=== PATIENT | female | born 1950 | race Caucasian/White ===

== ENCOUNTER 2017-08-07 10:31 | Emergency (ER) | payer OTHER ==
[~2017-08-07] VITALS: Ht 167.6 cm; Wt 72.3 kg
[~2017-08-07 10:31] MED LIST: ASPI-110 PO; BENA25CA2 PO; FOLI1 PO; LEVO.05 PO; PANT20 PO; POTA-243 PO; PRED20 PO
[2017-08-07 11:23] VITALS: BP 126/73; PULSE 76; RESP 18; TEMP 97.8; O2SAT 97
[2017-08-07 12:17] LABS: AUTOMATED NEUTROPHIL # 9.6 TH/MM3 (1.8-7.7); BASOPHIL # 0.2 TH/MM3 (0-0.2); BASOPHIL % 1.2 % (0.0-2.0); EOSINOPHIL # 0.3 TH/MM3 (0-0.4); HEMATOCRIT 42.3 % (35.0-46.0); HEMOGLOBIN 14.4 GM/DL (11.6-15.3); LYMPH % 22.3 % (9.0-44.0); LYMPHOCYTE # 3.4 TH/MM3 (1.0-4.8); MEAN CELL VOLUME 90.8 FL (80.0-100.0); MEAN CORPUSCULAR HEMOGLOBIN 30.9 PG (27.0-34.0); MEAN PLATELET VOLUME 8.1 FL (7.0-11.0); MONO % 11.5 % (0.0-8.0); MONOCYTE # 1.7 TH/MM3 (0-0.9); PLATELET COUNT 450 TH/MM3 (150-450); RED BLOOD COUNT 4.66 MIL/MM3 (4.00-5.30); RED CELL DISTRIBUTION WIDTH 13.2 % (11.6-17.2); WHITE BLOOD COUNT 15.2 TH/MM3 (4.0-11.0)
[2017-08-07 12:25] LABS: INTERNATIONAL NORMALIZED RATIO 1.1 RATIO; PROTHROMBIN TIME - PATIENT 10.7 SEC (9.8-11.6)
[2017-08-07 12:26] LABS: BILIRUBIN, URINE NEG (NEG); BLOOD, URINE NEG (NEG); GLUCOSE,URINE NEG (NEG); HYALINE CAST, URINE 3 /lpf (RARE); KETONE, URINE NEG (NEG); MUCUS URINE FEW /lpf (OCC); NITRITE,URINE NEG (NEG); PH, URINE 5.5 (5.0-8.5); SQUAMOUS EPITHELIAL CELL URINE 1 /hpf (0-5); URINE COLOR YELLOW (YELLW/STRAW); URINE LEUKOCYTE ESTERASE SMALL (NEG)
[2017-08-07 12:33] LABS: BICARBONATE 27.4 MEQ/L (21.0-32.0); CALCIUM 9.9 MG/DL (8.5-10.1); CREATININE 0.67 MG/DL (0.50-1.00)
--- NOTE | 2017-08-07 13:30 | PD ---
HPI Chief Complaint: Medical Clearance Time Seen by Provider: 13:04 Travel History International Travel<30 days: No Contact w/Intl Traveler<30days: No Traveled to known affect area: No History of Present Illness HPI 67-year-old woman, presents to the emergency department complaining of pains all over her entire body. States it started in April and the back of her neck up into her head. States she had scalp pain. Now she has pain throughout her upper and lower extremities. More in the muscles than in the joints. No clear etiology. She had fevers yesterday. Brother is a history of polymyositis. She has had TTP in the past. She follows with Dr. Salazar. Tried muscle relaxers which have not really helped. History Past Medical History Narrative Medical TTP Hypothyroidism Menopausal: Yes : 2 Para: 2 Social History Alcohol Use: Yes (OCC) Tobacco Use: No Allergies-Medications (Allergen,Severity, Reaction): Coded Allergies: adhesive (Unverified Allergy, Severe, BLISTERS, 12/04/16) Reported Meds & Prescriptions Reported Meds & Active Scripts Active K-Dur (Potassium Chloride) 10 Meq Tabcr 10 Meq PO DAILY Deltasone 20 Mg Tab (Prednisone) 20 Mg Tab 20 Mg PO DAILY 30 Days Reported Folate 1 Mg Tab (Folic Acid) 1 Mg Tab 1 Mg PO DAILY Protonix (Pantoprazole Sodium) 20 Mg Tabdr 20 Mg PO DAILY Benadryl (Diphenhydramine HCl) 25 Mg Cap 25 Mg PO HSPRN Aspirin/Enteric (Aspirin) 81 Mg Tab 81 Mg PO DAILY Synthroid (Levothyroxine Sodium) 50 Mcg Tab 75 Mcg PO DAILY Review of Systems Except as stated in HPI: all other systems reviewed are Neg Physical Exam Narrative GENERAL: Well-appearing 67-year-old woman, no acute distress. SKIN: Focused skin assessment warm/dry. No rash or petechiae. HEAD: Atraumatic. Normocephalic. EYES: Pupils equal and round. No scleral icterus. No injection or drainage. ENT: No nasal bleeding or discharge. Mucous membranes pink and moist. NECK: Trachea midline. No JVD. CARDIOVASCULAR: Regular rate and rhythm. No murmur appreciated. RESPIRATORY: No accessory muscle use. Clear to auscultation. Breath sounds equal bilaterally. GASTROINTESTINAL: Abdomen soft, non-tender, nondistended. Hepatic and splenic margins not palpable. MUSCULOSKELETAL: No obvious deformities. No edema, swelling, muscle tenderness. NEUROLOGICAL: Awake and alert. No obvious cranial nerve deficits. Motor grossly within normal limits. Normal speech. PSYCHIATRIC: Appropriate mood and affect; insight and judgment normal. Data Data Last Documented VS Vital Signs Date Time Temp Pulse Resp B/P (MAP) Pulse Ox O2 Delivery O2 Flow Rate FiO2 08/07/17 11:23 97.8 76 18 126/73 (90) 97 Orders Orders Complete Blood Count With Diff (08/07/17 11:26) Basic Metabolic Panel (Bmp) (08/07/17 11:26) Urinalysis - C+S If Indicated (08/07/17 11:26) Creatine Kinase (Cpk) (08/07/17 11:26) Act Partial Throm Time (Ptt) (08/07/17 11:30) Prothrombin Time / Inr (Pt) (08/07/17 11:30) Ed Discharge Order (08/07/17 13:30) Labs Laboratory Tests Test 08/07/17 11:55 White Blood Count 15.2 TH/MM3 Red Blood Count 4.66 MIL/MM3 Hemoglobin 14.4 GM/DL Hematocrit 42.3 % Mean Corpuscular Volume 90.8 FL Mean Corpuscular Hemoglobin 30.9 PG Mean Corpuscular Hemoglobin Concent 34.0 % Red Cell Distribution Width 13.2 % Platelet Count 450 TH/MM3 Mean Platelet Volume 8.1 FL Neutrophils (%) (Auto) 63.0 % Lymphocytes (%) (Auto) 22.3 % Monocytes (%) (Auto) 11.5 % Eosinophils (%) (Auto) 2.0 % Basophils (%) (Auto) 1.2 % Neutrophils # (Auto) 9.6 TH/MM3 Lymphocytes # (Auto) 3.4 TH/MM3 Monocytes # (Auto) 1.7 TH/MM3 Eosinophils # (Auto) 0.3 TH/MM3 Basophils # (Auto) 0.2 TH/MM3 CBC Comment DIFF FINAL Differential Comment Prothrombin Time 10.7 SEC Prothromb Time International Ratio 1.1 RATIO Activated Partial Thromboplast Time 23.9 SEC Urine Color YELLOW Urine Turbidity CLEAR Urine pH 5.5 Urine Specific [place] 1.021 Urine Protein NEG mg/dL Urine Glucose (UA) NEG mg/dL Urine Ketones NEG mg/dL Urine Occult Blood NEG Urine Nitrite NEG Urine Bilirubin NEG Urine Urobilinogen LESS THAN 2.0 MG/DL Urine Leukocyte Esterase SMALL Urine RBC 3 /hpf Urine WBC 3 /hpf Urine Squamous Epithelial Cells 1 /hpf Urine Hyaline Casts 3 /lpf Urine Mucus FEW /lpf Microscopic Urinalysis Comment CULT NOT INDICATED Blood Urea Nitrogen 12 MG/DL Creatinine 0.67 MG/DL Random Glucose 87 MG/DL Calcium Level 9.9 MG/DL Sodium Level 140 MEQ/L Potassium Level 3.9 MEQ/L Chloride Level 104 MEQ/L Carbon Dioxide Level 27.4 MEQ/L Anion Gap 9 MEQ/L Estimat Glomerular Filtration Rate 88 ML/MIN Total Creatine Kinase 74 U/L [facility] Medical Decision Making Medical Screen Exam Complete: Yes Emergency Medical Condition: Yes Interpretation(s) LABS: CBC is remarkable for mild leukocytosis. Platelet count 450. BMP is unremarkable. UA is unremarkable. Differential Diagnosis Rheumatologic disease, rhabdomyolysis, TTP, other Narrative Course Medical decision making This 67-year-old woman who presents emerged from complaining of generalized pain. She looks well. There is no significant calf her other muscle tenderness to suggest myositis. She is family history of immune disease. She likely needs follow-up with a manager call. Platelet counts normal. I do not see any myoglobinuria or other evidence of rhabdo. Outpatient follow-up. Diagnosis Primary Impression: Myalgia Referrals: [facility] call for appointment Additional Instructions: Follow up with Dr. Collins, call for an appointment [phone]. Return to the ER for any new or worsening symptoms. Follow-up with your primary doctor and your oncologist. Med/Other Pt SpecificInfo: Prescription(s) given, No Change to Meds Disposition: 01 DISCHARGE HOME Condition: Stable Vinay Galindo MD Aug 07, 2017 13:30
[2017-08-07 13:31] VITALS: BP 131/77; PULSE 74; RESP 18; O2SAT 98
[2017-08-07 14:07] VITALS: BP 110/70
== END 2017-08-07 14:08 | disposition home or self-care (01) ==
LOC: NEPE 10:31
DX: M79.1 Myalgia (principal); E03.9 Hypothyroidism, unspecified; Z79.899 Other long term (current) drug therapy
CPT/HCPCS: 80048; 81001; 82550; 85025; 85610; 85730; 99283

== ENCOUNTER 2018-04-04 19:12 | Inpatient (IN) ==
[2018-04-04 19:51] LABS: Baso # (Auto) 0.1 th/mm3 (0.0-0.2); Baso % (Auto) 0.5 % (0.0-2.0); Eos # (Auto) 0.1 th/mm3 (0.0-0.4); Eos % (Auto) 0.4 % (0.0-4.0); Hematocrit 29.3 % (35.0-46.0); Hemoglobin 10.5 gm/dL (11.6-15.3); Lymph # (Auto) 4.9 th/mm3 (1.0-4.8); Lymph % (Auto) 28.7 % (9.0-44.0); Mean Corpuscular HGB Conc 35.9 % (32.0-36.0); Mean Corpuscular Hemoglobin 34.4 pg (27.0-34.0); Mean Corpuscular Volume 95.7 fL (80.0-100.0); Mean Platelet Volume 7.9 fL (7.0-11.0); Mono # (Auto) 1.8 th/mm3 (0.0-0.9); Mono % (Auto) 10.6 % (0.0-8.0); Neut # (Auto) 10.2 th/mm3 (1.8-7.7); Neut % (Auto) 59.8 % (16.0-70.0); Red Blood Count 3.07 mil/mm3 (4.00-5.30); Red Cell Distribution Width 17.3 % (11.6-17.2); White Blood Count 17.1 th/mm3 (4.0-11.0)
--- NOTE | 2018-04-04 20:02 | ED ---
HPI General Chief complaint: Medical Clearance Stated complaint: Abd/Rib Pain Complaint Time Seen by Provider: 04/04/18 19:23 Source: patient Mode of arrival: ambulatory Limitations: no limitations History of Present Illness HPI narrative: 67-year-old female presents noting that she was called to tell that her platelets were 8000. She states she has a history of TTP and when he gets like this she has to have pheresis. 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 She states that she has not had any headaches, specific bleeding or complaints other than bilateral lower rib pain that she does not know if this is related. She denies any cough or congestion or other symptoms associated with this. She denies any trauma. She states that the last time she had a flare was about 4 years ago. Quality is low. Severity is 8000. She denies specific modifying factors. Related Data Home Medications Medication Instructions Recorded Confirmed ascorbic acid (vitamin C) [Vitamin 500 mg PO BID 04/04/18 04/04/18 C] calcium citrate-vitamin D3 1 tab PO DAILY 04/04/18 04/04/18 folic acid 0.8 mg PO BID 04/04/18 04/04/18 levothyroxine 75 mcg PO DAILY 04/04/18 04/04/18 potassium 99 mg PO DAILY 04/04/18 04/04/18 prednisone 40 mg PO DAILY 04/04/18 04/04/18 pyridoxine (vitamin B6) [Vitamin 25 mg PO TID 04/04/18 04/04/18 B-6] Allergies Allergy/AdvReac Type Severity Reaction Status Date / Time adhesive Allergy Severe BLISTERS Verified 04/04/18 19:19 Review of Systems ROS: all other systems reviewed are negative [facility] Medical History Medical History PMR (polymyalgia rheumatica) (Acute) TTP (thrombotic thrombocytopenic purpura) (Acute) Social History Social History Substance History: Past History Smoking Status: Former smoker Tobacco Type: Cigarettes How Often Do You Have a Drink Containing Alcohol: 4 or more times a week Recent Travel in [facility] within the Last 8 Weeks: No Recent Out of Country Travel within the Last 8 Weeks: No Substance Abuse Detail Marijuana: Substance Use Status: Early Remission Route Used Substance Abuse: By Mouth Reason for Use: Get High Immunization History Tetanus Immunization: Unsure Exam Narrative Exam Narrative: GENERAL: 67 y/o female in no apparent distress SKIN: Focused skin assessment warm/dry. HEAD: Atraumatic. Normocephalic. EYES: Pupils equal and round. No scleral icterus. No injection or drainage. ENT: No nasal bleeding or discharge. Mucous membranes pink and moist. NECK: Trachea midline. CARDIOVASCULAR: Regular rate and rhythm. RESPIRATORY: No accessory muscle use. Clear to auscultation. Breath sounds equal bilaterally. GASTROINTESTINAL: Abdomen soft, non-tender, nondistended. MUSCULOSKELETAL: No obvious deformities. No clubbing. No cyanosis. NEUROLOGICAL: Awake and alert. Motor grossly within normal limits. Normal speech. PSYCHIATRIC: Appropriate mood and affect; insight and judgment normal. Course Reevaluation(s) Reevaluation #1: Calls placed to Dr. Baumann who is covering for Dr. Salazar without return of call. Will dose with Solu-Medrol and placed in the hospital overnight for initiation of TTP care Reevaluation #2: patient updated and agrees to admit Consultations Consultation #1: dr mcdonald states to keep calling dr salazar and place in observation Initial Documented Vital Signs Temperature 97.8 F 04/04/18 19:16 Pulse Rate 94 H 04/04/18 19:16 Respiratory Rate 17 04/04/18 19:16 Blood Pressure 185/78 H 04/04/18 19:16 Pulse Oximetry 97 04/04/18 19:16 Last Documented Vital Signs Temperature 97.8 F 04/04/18 19:16 Pulse Rate 80 04/04/18 22:01 Respiratory Rate 18 04/04/18 22:01 Blood Pressure 139/65 04/04/18 22:01 Pulse Oximetry 97 04/04/18 22:01 Medical Decision Making MDM Narrative Medical decision making narrative: We will check blood work, chest x-ray and reevaluate. If patient's platelets are this level she will need to be admitted for additional care and she understands this. Medical Screen Exam Complete: Yes Emergency Medical Condition: Yes Differential Diagnosis Differential Diagnosis: lab error, ttp, anemia, fracture.... Lab Data Result diagrams: 04/04/18 19:40 04/04/18 19:40 Lab Results 12/14/18 12/14/18 12/14/18 Range/Units 19:40 19:40 19:40 WBC 17.1 H (4.0-11.0) th/mm3 RBC 3.07 L (4.00-5.30) mil/mm3 Hgb 10.5 L (11.6-15.3) gm/dL Hct 29.3 L (35.0-46.0) % MCV 95.7 (80.0-100.0) fL MCH 34.4 H (27.0-34.0) pg MCHC 35.9 (32.0-36.0) % RDW 17.3 H (11.6-17.2) % Plt Count 10 L* (150-450) th/mm3 MPV 7.9 (7.0-11.0) fL Prelim Diff (Auto) Slide review pending Neut % (Auto) 59.8 (16.0-70.0) % Lymph % (Auto) 28.7 (9.0-44.0) % [place] % (Auto) 10.6 H (0.0-8.0) % Eos % (Auto) 0.4 (0.0-4.0) % Baso % (Auto) 0.5 (0.0-2.0) % Neut # (Auto) 10.2 H (1.8-7.7) th/mm3 Lymph # (Auto) 4.9 H (1.0-4.8) th/mm3 [place] # (Auto) 1.8 H (0.0-0.9) th/mm3 Eos # (Auto) 0.1 (0.0-0.4) th/mm3 Baso # (Auto) 0.1 (0.0-0.2) th/mm3 WBC Differential . Diff Scan Auto diff confirmed Differential Comment . Platelet Estimate Low L (Normal) Platelet Morphology Enlarged H (Normal) Acanthocytes (Spur) 1+ H (None) Keratocytes 1+ H (None) PT 10.7 (9.8-11.6) sec INR 1.1 Ratio APTT 27.1 (23.4-31.7) sec Sodium 141 (136-145) meq/L Potassium 3.9 (3.5-5.1) meq/L Chloride 105 (98-107) meq/L Carbon Dioxide 27.5 (21.0-32.0) meq/L Anion Gap 9 (5-15) meq/L BUN 19 H (7-18) mg/dL Creatinine 0.80 (0.50-1.00) mg/dL Estimated GFR 72 L (>89) mL/min Random Glucose 127 H (74-106) mg/dL Calcium 9.6 (8.5-10.1) mg/dL Magnesium 2.1 (1.5-2.5) mg/dL Total Bilirubin 1.1 H (0.2-1.0) mg/dL AST 59 H (15-37) U/L ALT 57 H (10-53) U/L Alkaline Phosphatase 81 (45-117) U/L Total Creatine Kinase 105 (26-192) U/L CK-MB (CK-2) 1.3 (0.5-3.6) ng/mL Troponin I Less than 0.02 L (0.02-0.05) ng/mL Total Protein 8.5 H (6.4-8.2) g/dL Albumin 4.3 (3.4-5.0) g/dL Urine Color (Yellw/Straw) Urine Clarity (Clear) Urine pH (5.0-8.5) Ur Specific [place] (1.002-1.035) Urine Protein (Neg-Trace) mg/dL Urine Glucose (UA) (Negative) mg/dL Urine Ketones (Negative) mg/dL Urine Occult Blood (Negative) Urine Nitrate (Negative) Urine Bilirubin (Negative) Urine Urobilinogen (Less than 2) mg/dL Ur Leukocyte Esterase (Negative) Urine RBC (0-3) /hpf Urine WBC (0-5) /hpf Hyaline Casts (0-3) /lpf Granular Casts (None) /lpf Urine Mucus (Occasional) /lpf Micro UA Comment Ur Microscopic Review Urine Culture Comments Blood Type Blood Type Recheck Antibody Screen 04/04/18 04/04/18 Range/Units 19:40 20:35 WBC (4.0-11.0) th/mm3 RBC (4.00-5.30) mil/mm3 Hgb (11.6-15.3) gm/dL Hct (35.0-46.0) % MCV (80.0-100.0) fL MCH (27.0-34.0) pg MCHC (32.0-36.0) % RDW (11.6-17.2) % Plt Count (150-450) th/mm3 MPV (7.0-11.0) fL Prelim Diff (Auto) Neut % (Auto) (16.0-70.0) % Lymph % (Auto) (9.0-44.0) % [place] % (Auto) (0.0-8.0) % Eos % (Auto) (0.0-4.0) % Baso % (Auto) (0.0-2.0) % Neut # (Auto) (1.8-7.7) th/mm3 Lymph # (Auto) (1.0-4.8) th/mm3 [place] # (Auto) (0.0-0.9) th/mm3 Eos # (Auto) (0.0-0.4) th/mm3 Baso # (Auto) (0.0-0.2) th/mm3 WBC Differential Diff Scan Differential Comment Platelet Estimate (Normal) Platelet Morphology (Normal) Acanthocytes (Spur) (None) Keratocytes (None) PT (9.8-11.6) sec INR Ratio APTT (23.4-31.7) sec Sodium (136-145) meq/L Potassium (3.5-5.1) meq/L Chloride (98-107) meq/L Carbon Dioxide (21.0-32.0) meq/L Anion Gap (5-15) meq/L BUN (7-18) mg/dL Creatinine (0.50-1.00) mg/dL Estimated GFR (>89) mL/min Random Glucose (74-106) mg/dL Calcium (8.5-10.1) mg/dL Magnesium (1.5-2.5) mg/dL Total Bilirubin (0.2-1.0) mg/dL AST (15-37) U/L ALT (10-53) U/L Alkaline Phosphatase (45-117) U/L Total Creatine Kinase (26-192) U/L CK-MB (CK-2) (0.5-3.6) ng/mL Troponin I (0.02-0.05) ng/mL Total Protein (6.4-8.2) g/dL Albumin (3.4-5.0) g/dL Urine Color Yellow (Yellw/Straw) Urine Clarity Hazy H (Clear) Urine pH 5.0 (5.0-8.5) Ur Specific [place] 1.021 (1.002-1.035) Urine Protein 30 H (Neg-Trace) mg/dL Urine Glucose (UA) Negative (Negative) mg/dL Urine Ketones Negative (Negative) mg/dL Urine Occult Blood Small H (Negative) Urine Nitrate Negative (Negative) Urine Bilirubin Negative (Negative) Urine Urobilinogen Less than 2 (Less than 2) mg/dL Ur Leukocyte Esterase Moderate H (Negative) Urine RBC 2 (0-3) /hpf Urine WBC 19 H (0-5) /hpf Hyaline Casts 4 (0-3) /lpf Granular Casts 5 (None) /lpf Urine Mucus Few H (Occasional) /lpf Micro UA Comment Culture indicated Ur Microscopic Review Not Reportable Urine Culture Comments Culture indicated Blood Type B Negative Blood Type Recheck Required Antibody Screen Negative Imaging Data Radiologist's impression: Chest X-Ray 04/04/18 19:29 CONCLUSION: 1. No acute cardiopulmonary disease. Discharge Plan Discharge Disposition Patient Disposition: ED Admit(ED Internal Use Only) Discharge Order Discharge Orders: ED Use Only Admit Order (Routine); Ordered 04/04/18 Ordered By: Praveena Jimenez Discharge Details Diagnosis: Thrombocytopenia Physicians Team ED Provider: Praveena Jimenez Primary Care Provider: UNKNOWN, Attending Provider: Blue Mcdonald Other Providers: [employer] Status ED Status: Admitted Observation Patient
[2018-04-04 20:04] LABS: Platelet Count 10 th/mm3 (150-450)
[2018-04-04 20:09] LABS: Activated Partial Thrombo Time 27.1 sec (23.4-31.7); INR 1.1 Ratio; Prothrombin Time 10.7 sec (9.8-11.6)
--- NOTE | 2018-04-04 20:14 | XR ---
EXAM DATE: 04/04/2018 8:10 PM EST AGE/SEX: 67 years / Female INDICATIONS: . Chest tightness. CLINICAL DATA: This is the patient's initial encounter. Patient reports that signs and symptoms have been present for 1 day and indicates a pain score of 0/10. MEDICAL/SURGICAL HISTORY: . Thrombotic thrombocytopenic purpura. None. [place] [facility] [place]. . FINDINGS: PA and lateral views of the chest demonstrate the lungs to be symmetrically aerated without evidence of mass, infiltrate or effusion. The cardiomediastinal contours are unremarkable. Osseous structures are intact. CONCLUSION: 1. No acute cardiopulmonary disease. Electronically signed by: Oscar Mcknight MD Board Certified Radiologist 04/04/2018 8:12 PM ES T
[2018-04-04 20:21] LABS: Alanine Aminotransferase 57 U/L (10-53); Albumin 4.3 g/dL (3.4-5.0); Anion Gap 9 meq/L (5-15); Aspartate Aminotransferase 59 U/L (15-37); Blood Urea Nitrogen 19 mg/dL (7-18); Calcium 9.6 mg/dL (8.5-10.1); Carbon Dioxide 27.5 meq/L (21.0-32.0); Chloride 105 meq/L (98-107); Glomerular Filtration Rate 72 mL/min (>89); Glucose,Random 127 mg/dL (74-106); Magnesium 2.1 mg/dL (1.5-2.5); Potassium 3.9 meq/L (3.5-5.1); Sodium 141 meq/L (136-145)
[2018-04-04 20:22] LABS: Acanthocytes 1+
[2018-04-04 20:25] LABS: Alkaline Phosphatase 81 U/L (45-117); Creatine Kinase 105 U/L (26-192); Total Protein 8.5 g/dL (6.4-8.2)
[2018-04-04 20:37] LABS: Creatine Kinase MB 1.3 ng/mL (0.5-3.6)
[2018-04-04] MEDS ORDERED: MethylPREDNISolone Sod Succinate Inj 125 MG/2 ML Vial IV.PUSH ONE (20:53)
[2018-04-04] MEDS ORDERED: Bisacodyl 10 MG Supp RECTAL PRN (21:18)
[2018-04-04 21:20] LABS: Bilirubin,Urine Negative (Negative); Clarity,Urine Hazy (Clear); Color,Urine Yellow (Yellw/Straw); Glucose,Urine (UA) Negative (Negative); Hyaline Casts,Urine 4 /lpf (0-3); Leukocyte Esterase,Urine Moderate (Negative); Mucus,Urine Few /lpf (Occasional); Nitrite,Urine Negative (Negative); Specific Gravity,Urine 1.021 (1.002-1.035)
--- NOTE | 2018-04-05 03:44 | P.HPIM ---
History of Present Illness Primary Care Physician: UNKNOWN History of Present Illness: 67-year-old female with a history of TTP who presents with a 3-week history of progressively worsening generalized. Patient was found to have low platelets in the 40s 1 week ago and was started on prednisone 40 mg daily, however on outpatient labs 04/04, she is noted to have hemoglobin of 8. Patient reports some small areas of ecchymosis on her hands, as well as some petechia on her legs which has been there for several days. She denies any acute bleeding, denies any gum bleeding. Otherwise says she is feeling all right. No chest pain, shortness of breath, nausea, vomiting, Lantus, dizziness, fevers, chills. Review of Systems All other systems reviewed negative except as stated in HPI PMFSH - History History Provided By: Patient - Medical History Medical History: Medical History (Last Updated 04/05/18 @ 03:42 by Blue Mcdonald MD) H/O: hysterectomy PMR (polymyalgia rheumatica) TTP (thrombotic thrombocytopenic purpura) - Surgical History Surgical History: Surgical History (Last Updated 04/05/18 @ 03:42 by Blue Mcdonald MD) H/O splenectomy Hx of tonsillectomy - Family History Family History: Family History (Last Updated 04/05/18 @ 03:42 by Blue Mcdonald MD) Father Heart disease Mother Appendicitis - Social History I have reviewed the patient's Social History: Yes - Tobacco History Second Hand Smoke Exposure: No Tobacco Use In Past 30 Days: No Smoking Status: Never smoker Tobacco Type: Cigarettes - Alcohol History How Often Do You Have a Drink Containing Alcohol: Never - Substance Use History Substance History: No History of Abuse - Substance Use Type Marijuana Status: Early Remission Route Used: By Mouth Reason for Use: Get High - Travel History Recent Travel in the [place] Within the Last 8 Weeks: No Recent Travel Out of the Country Within the Last 8 Weeks: No - Immunization History Tetanus Immunization: Unsure Medications and Allergies Active Medications: Active Medications Acetaminophen (Tylenol) 650 mg PO Q4H PRN PRN Reason: Temp > 100.4 Al Hydroxide/Mg Hydroxide (Milk Of Magnesia Liq) 30 ml PO Q12H PRN PRN Reason: Mild Constipation Ascorbic Acid (Vitamin C) 500 mg PO BID JACKI Bisacodyl (Dulcolax Supp) 10 mg RECTAL DAILY PRN PRN Reason: SEVERE CONSITIPATION Calcium/Vitamin D (Oscal With D 250/125 Mg) 2 tab PO DAILY [facility] Folic Acid (Folic Acid) 1 mg PO BID [facility] Lactulose (Lactulose Liq) 30 ml PO DAILY PRN PRN Reason: SEVERE CONSITIPATION Levothyroxine Sodium (Synthroid) 75 mcg PO DAILY@0600 [facility] Ondansetron HCl (Zofran Inj) 4 mg IV.PUSH Q6H PRN PRN Reason: NAUSEA OR VOMITING Prednisone (Deltasone) 40 mg PO DAILY [facility] Pyridoxine HCl (Vitamin B-6) 25 mg PO TID [facility] Sennosides (Senokot) 17.2 mg PO Q12H PRN PRN Reason: Moderate Constipation Sodium Chloride (Ns Flush) 2 ml IV.FLUSH BID [facility] Sodium Chloride (Ns Flush) 2 ml IV.FLUSH PRN PRN PRN Reason: FLUSH AFTER USING IV ACCESS Allergies Allergy/AdvReac Type Severity Reaction Status Date / Time adhesive Allergy Severe BLISTERS Verified 04/04/18 19:19 Home Medications Medication Instructions Recorded Confirmed Type ascorbic acid (vitamin C) [Vitamin 500 mg PO BID 04/04/18 04/04/18 History C] calcium citrate-vitamin D3 1 tab PO DAILY 04/04/18 04/04/18 History folic acid 0.8 mg PO BID 04/04/18 04/04/18 History levothyroxine 75 mcg PO DAILY 04/04/18 04/04/18 History potassium 99 mg PO DAILY 04/04/18 04/04/18 History prednisone 40 mg PO DAILY 04/04/18 04/04/18 History pyridoxine (vitamin B6) [Vitamin 25 mg PO TID 04/04/18 04/04/18 History B-6] Exam Vital signs: Vital Signs 04/04/18 19:16 04/04/18 22:01 04/04/18 22:50 Temperature 97.8 F 97.6 F Pulse Rate 94 H 80 81 Respiratory Rate 17 18 18 Blood Pressure 185/78 H 139/65 115/56 L Pulse Oximetry 97 97 97 04/04/18 23:45 Temperature 98.1 F Pulse Rate 77 Respiratory Rate 18 Blood Pressure 118/62 Pulse Oximetry 95 Intake & Output 04/04/18 04/04/18 04/05/18 06:59 18:59 06:59 Weight 76.204 kg Other: Date of Last Bowel Movement 04/04/18 Weight On Admission 76.204 kg Results - Labs CBC & Chem 7: 04/04/18 19:40 04/04/18 19:40 Labs: Short CBC 04/04/18 Range/Units 19:40 WBC 17.1 H (4.0-11.0) th/mm3 Hgb 10.5 L (11.6-15.3) gm/dL Hct 29.3 L (35.0-46.0) % Plt Count 10 L* (150-450) th/mm3 BMP 04/04/18 19:40 Sodium 141 Potassium 3.9 Chloride 105 Carbon Dioxide 27.5 BUN 19 H Creatinine 0.80 Calcium 9.6 Cardiac Enzymes 04/04/18 Range/Units 19:40 Total Creatine Kinase 105 (26-192) U/L CK-MB (CK-2) 1.3 (0.5-3.6) ng/mL Troponin I Less than 0.02 L (0.02-0.05) ng/mL Liver Function 04/04/18 Range/Units 19:40 Total Bilirubin 1.1 H (0.2-1.0) mg/dL AST 59 H (15-37) U/L ALT 57 H (10-53) U/L Alkaline Phosphatase 81 (45-117) U/L Albumin 4.3 (3.4-5.0) g/dL Urine 04/04/18 Range/Units 20:35 Urine Color Yellow (Yellw/Straw) Urine Clarity Hazy H (Clear) Urine pH 5.0 (5.0-8.5) Ur Specific [place] 1.021 (1.002-1.035) Urine Protein 30 H (Neg-Trace) mg/dL Urine Glucose (UA) Negative (Negative) mg/dL - Imaging Impressions Chest X-Ray 04/04/18 19:29 CONCLUSION: 1. No acute cardiopulmonary disease. Caprini VTE Risk Assessment Caprini VTE Risk Assessment: Moderate/High Risk (score >= 2) VTE Pharmacological Exception Reason: Thrombocytopenia (<50) Caprini Risk Assessment Model: Point Value = 1 Point Value = 2 Point Value = 3 Point Value = 5 Age 41-60 Minor surgery BMI > 25 kg/m2 Swollen legs Varicose veins or History of unexplained or recurrent spontaneous Oral contraceptives or hormone replacement Sepsis (< 1 month) Serious lung disease, including pneumonia (< 1 month) Abnormal pulmonary function Acute myocardial infarction Congestive heart failure (< 1 month) History of inflammatory bowel disease Medical patient at bed rest Age 61-74 Arthroscopic surgery Major open surgery (> 45 min) Laparoscopic surgery (> 45 min) Malignancy Confined to bed (> 72 hours) Immobilizing plaster cast Central venous access Age >= 75 History of VTE Family history of VTE Factor V Leiden Prothrombin [id number] Lupus anticoagulant Anticardiolipin antibodies Elevated serum homocysteine Heparin-induced thrombocytopenia Other congenital or acquired thrombophilia Stroke (< 1 month) Elective arthroplasty Hip, pelvis, or leg fracture Acute spinal cord injury (< 1 month) Prophylaxis Regimen: Total Risk Factor Score Risk Level Prophylaxis Regimen 0-1 Low Early ambulation 2 Moderate Order ONE of the following: *Sequential Compression Device (SCD) *Heparin 5000 units SQ BID 3-4 Higher Order ONE of the following medications: *Heparin 5000 units SQ TID *Enoxaparin/Lovenox 40 mg SQ daily (WT < 150 kg, CrCl > 30 mL/min) *Enoxaparin/Lovenox 30 mg SQ daily (WT < 150 kg, CrCl > 10-29 mL/min) *Enoxaparin/Lovenox 30 mg SQ BID (WT < 150 kg, CrCl > 30 mL/min) AND/OR *Sequential Compression Device (SCD) 5 or more Highest Order ONE of the following medications: *Heparin 5000 units SQ TID (Preferred with Epidurals) *Enoxaparin/Lovenox 40 mg SQ daily (WT < 150 kg, CrCl > 30 mL/min) *Enoxaparin/Lovenox 30 mg SQ daily (WT < 150 kg, CrCl > 10-29 mL/min) *Enoxaparin/Lovenox 30 mg SQ BID (WT < 150 kg, CrCl > 30 mL/min) AND *Sequential Compression Device (SCD) Assessment and Plan - Plan //Thrombocytopenia //History of TTP = Platelets measured 8,000 as outpatient, 10 thousand here. Some petechia and mild ecchymosis. = We will start on IV steroids. Consult hematology. No signs of active bleeding. Monitor //Transaminitis. //Mild hyperbilirubinemia of 1.1 -We will check bilirubin components. -Appears to be chronic. Recommend patient cut out alcohol //Leukocytosis of 17. Likely secondary to increased dose of by mouth steroids as outpatient. No signs of infection. Continue to monitor. Discussed Condition With: Patient, nurse, ED physician. H&P: Quality - VTE Deep Vein Thrombosis/Pulmonary Embolism Present on Admission: No
[2018-04-05] MEDS: MethylPREDNISolone Sod Succinate Inj 40 MG/ML Vial IV.PUSH SCH ×3 (06:30→21:47)
[2018-04-05] MEDS: Levothyroxine 75 MCG Tablet PO SCH (06:30)
[2018-04-05] MEDS ORDERED: Bisacodyl 10 MG Supp RECTAL PRN (08:10)
[2018-04-05 08:38] LABS: Baso % (Auto) 0.2 % (0.0-2.0); Hematocrit 28.1 % (35.0-46.0); Lymph # (Auto) 2.4 th/mm3 (1.0-4.8); Lymph % (Auto) 15.7 % (9.0-44.0); Mean Corpuscular HGB Conc 35.5 % (32.0-36.0); Mean Corpuscular Hemoglobin 34.7 pg (27.0-34.0); Mean Corpuscular Volume 97.8 fL (80.0-100.0); Mean Platelet Volume 8.4 fL (7.0-11.0); Mono # (Auto) 0.5 th/mm3 (0.0-0.9); Mono % (Auto) 3.1 % (0.0-8.0); Neut # (Auto) 12.5 th/mm3 (1.8-7.7); Red Blood Count 2.87 mil/mm3 (4.00-5.30); Red Cell Distribution Width 17.5 % (11.6-17.2); White Blood Count 15.4 th/mm3 (4.0-11.0)
[2018-04-05 08:51] LABS: Platelet Count 6 th/mm3 (150-450)
[2018-04-05] MEDS ORDERED: predniSONE 20 MG Tablet PO SCH (09:00)
[2018-04-05] MEDS ORDERED: Famotidine PF Inj 20 MG/2 ML Vial IV.PUSH PRN (09:00)
[2018-04-05 09:15] LABS: Albumin 3.9 g/dL (3.4-5.0); Anion Gap 8 meq/L (5-15); Aspartate Aminotransferase 47 U/L (15-37); Blood Urea Nitrogen 16 mg/dL (7-18); Calcium 9.3 mg/dL (8.5-10.1); Chloride 108 meq/L (98-107); Glomerular Filtration Rate 77 mL/min (>89); Glucose,Random 164 mg/dL (74-106); Potassium 4.1 meq/L (3.5-5.1); Sodium 143 meq/L (136-145)
[2018-04-05 09:17] LABS: Acanthocytes 1+; Alanine Aminotransferase 48 U/L (10-53); Howell-Jolly Bodies Present
[2018-04-05 09:18] LABS: Platelet Morphology Normal (Normal)
[2018-04-05 09:19] LABS: Alkaline Phosphatase 66 U/L (45-117); Total Protein 7.8 g/dL (6.4-8.2)
[2018-04-05] MEDS: Famotidine 20 MG Tablet PO SCH ×2 (09:41→21:46)
[2018-04-05] MEDS: Senna/Docusate Sodium 8.6/50 MG Tablet PO SCH ×2 (09:41→21:46)
[2018-04-05] MEDS: Calcium/Vitamin D 250/125 MG Tablet PO SCH (09:41)
[2018-04-05] MEDS: Ascorbic Acid 500 MG Tablet PO SCH ×2 (09:41→21:46)
[2018-04-05] MEDS: Folic Acid 1 MG Tablet PO SCH ×2 (09:41→21:46)
[2018-04-05 10:03] LABS: Lactate Dehydrogenase 1063 U/L (84-246)
--- NOTE | 2018-04-05 10:11 | P.CONCC ---
History of Present Illness Service: ICU Consult date: 04/05/18 Requesting Physician: Blue Mcdonald Reason for Consult: Severe thrombocytopenia/TTP Vascular Access Primary Care Provider: UNKNOWN Chief Complaint: Thrombocytopenia History of Present Illness: This is a 67-year-old female with a history of TTP that presented to the hospital yesterday with a history malaise. Laboratory studies were obtained and revealed a platelet count 8. Repeat labs drawn showed a platelet count of 10. Hematologyoncology was consulted, and upon their evaluation and request for plasmapheresis to be performed. Due to scheduling and weekend coverage ICU was consulted for placement of vascular access catheter for initiation of plasmapheresis. Upon evaluation in the ICU the patient expressed wishes to only have her vascular catheter placed in the operating room, under sterile conditions with anesthesia. Discussed with hematologyoncology Ary Salas. Plan for vascular access with vascular surgery. 1 unit of platelets ordered for possible transfusion. Review of Systems Constitutional: Reports fatigue, Reports malaise Hematologic/Lymphatic: Reports easy bleeding, Reports easy bruising PMFSH - History History Provided By: Patient - Medical History Medical History: Medical History (Last Updated 04/05/18 @ 03:42 by Blue Mcdonald MD) H/O: hysterectomy PMR (polymyalgia rheumatica) TTP (thrombotic thrombocytopenic purpura) - Surgical History Surgical History: Surgical History (Last Updated 04/05/18 @ 03:42 by Blue Mcdonald MD) H/O splenectomy Hx of tonsillectomy - Family History Family History: Family History (Last Updated 04/05/18 @ 03:42 by Blue Mcdonald MD) Father Heart disease Mother Appendicitis - Tobacco History Second Hand Smoke Exposure: No Tobacco Use In Past 30 Days: No Smoking Status: Former smoker Tobacco Type: Cigarettes, Cigars - Alcohol History How Often Do You Have a Drink Containing Alcohol: 4 or more times a week - Substance Use History Substance History: Past History - Substance Use Type Marijuana Status: Early Remission Route Used: By Mouth Frequency: Rice Crispy Last Used: January Reason for Use: Feels Good - Travel History Recent Travel in the [place] Within the Last 8 Weeks: No Recent Travel Out of the Country Within the Last 8 Weeks: No - Immunization History Tetanus Immunization: Unsure Hx Influenza Vaccine This Season: Yes Medications and Allergies Active Medications: Active Medications Acetaminophen (Tylenol) 650 mg PO Q4H PRN PRN Reason: Temp > 100.4 Al Hydroxide/Mg Hydroxide (Milk Of Magnesia Liq) 30 ml PO Q12H PRN PRN Reason: Mild Constipation Ascorbic Acid (Vitamin C) 500 mg PO BID [facility] Last Admin: 04/05/18 09:41 Dose: Not Given Bisacodyl (Dulcolax Supp) 10 mg RECTAL DAILY PRN PRN Reason: SEVERE CONSITIPATION Calcium/Vitamin D (Oscal With D 250/125 Mg) 2 tab PO DAILY [facility] Last Admin: 04/05/18 09:41 Dose: Not Given Chlorhexidine Gluconate (Chlorhexidine 2% Cloth) 3 pack TOPICAL DAILY@0400 [facility] Stop: 04/11/18 03:59 Chlorhexidine Gluconate (Chlorhexidine 2% Cloth) 3 pack TOPICAL DAILY@0400 PRN PRN Reason: Extra cloth needed Stop: 04/11/18 03:59 Famotidine (Pepcid) 20 mg PO BID [facility] Last Admin: 04/05/18 09:41 Dose: Not Given Famotidine (Pepcid Pf Inj) 20 mg IV.PUSH Q12HR PRN PRN Reason: SEE LABEL COMMENTS Folic Acid (Folic Acid) 1 mg PO BID [facility] Last Admin: 04/05/18 09:41 Dose: Not Given Lactulose (Lactulose Liq) 30 ml PO DAILY PRN PRN Reason: SEVERE CONSITIPATION Levothyroxine Sodium (Synthroid) 75 mcg PO DAILY@0600 [facility] Last Admin: 04/05/18 06:30 Dose: 75 mcg Methylprednisolone Sodium Succinate (Solumedrol Inj) 60 mg IV.PUSH Q8HR [facility] Last Admin: 04/05/18 06:30 Dose: 60 mg Miscellaneous (Pill Splitter) 1 each OTHER PRN PRN PRN Reason: SEE LABEL COMMENTS Ondansetron HCl (Zofran Inj) 4 mg IV.PUSH Q6H PRN PRN Reason: NAUSEA OR VOMITING Pyridoxine HCl (Vitamin B-6) 25 mg PO TID [facility] Last Admin: 04/05/18 09:41 Dose: Not Given Senna/Docusate Sodium (Lorri-Colace) 1 tab PO BID [facility] Last Admin: 04/05/18 09:41 Dose: Not Given Sennosides (Senokot) 17.2 mg PO Q12H PRN PRN Reason: Moderate Constipation Sodium Chloride (Ns Flush) 2 ml IV.FLUSH BID [facility] Last Admin: 04/05/18 09:41 Dose: Not Given Sodium Chloride (Ns Flush) 2 ml IV.FLUSH PRN PRN PRN Reason: FLUSH AFTER USING IV ACCESS Allergies Allergy/AdvReac Type Severity Reaction Status Date / Time adhesive Allergy Severe BLISTERS Verified 04/04/18 19:19 Home Medications Medication Instructions Recorded Confirmed Type ascorbic acid (vitamin C) [Vitamin 500 mg PO BID 04/04/18 04/04/18 History C] calcium citrate-vitamin D3 1 tab PO DAILY 04/04/18 04/04/18 History folic acid 0.8 mg PO BID 04/04/18 04/04/18 History levothyroxine 75 mcg PO DAILY 04/04/18 04/04/18 History potassium 99 mg PO DAILY 04/04/18 04/04/18 History prednisone 40 mg PO DAILY 04/04/18 04/04/18 History pyridoxine (vitamin B6) [Vitamin 25 mg PO TID 04/04/18 04/04/18 History B-6] Physical Exam Vital signs: Vital Signs 04/04/18 19:16 04/04/18 22:01 04/04/18 22:50 Temperature 97.8 F 97.6 F Pulse Rate 94 H 80 81 Respiratory Rate 17 18 18 Blood Pressure 185/78 H 139/65 115/56 L Pulse Oximetry 97 97 97 04/04/18 23:45 04/05/18 03:58 04/05/18 08:00 Temperature 98.1 F 98.7 F 97.8 F Pulse Rate 77 84 71 Respiratory Rate 18 18 16 Blood Pressure 118/62 135/66 99/53 L Pulse Oximetry 95 95 95 04/05/18 08:34 Temperature Pulse Rate Respiratory Rate Blood Pressure 128/66 Pulse Oximetry Intake & Output 04/04/18 04/05/18 04/05/18 18:59 06:59 18:59 Intake Total 200 / 200 Balance 200 / 200 Weight 76.204 kg 75.9 kg Intake: Oral 200 / 200 Other: # Voids 2 Date of Last Bowel Movement 04/04/18 04/04/18 Weight On Admission 76.204 kg - Constitutional no acute distress - Routine HEENT Exam Head: Present: normocephalic Eye: Present: EOMI, PERRL, normal accommodation ENT: Present: mucous membranes moist, oropharynx clear, dentition normal, nares patent, external ear normal - Routine Neck Exam Present: supple, full ROM - Routine Respiratory Exam Present: CTA bilaterally - Routine Cardiovascular Exam Present: RRR, S1, S2 - Routine Abdominal Exam Present: soft, normoactive bowel sounds - Routine Skin Exam Present: intact, ecchymosis (and petechiae) - Detailed Neurological Exam: Coma Scale Eye Opening: Spontaneous Verbal Response: Oriented Motor Response: Obey commands [place] Coma Scale Total: 15 - Routine Psychiatric Exam Present: normal affect, normal thought process, cooperative, good insight, good judgment Assessment and Plan - Assessment and Plan Plan: Plan by systems: Neurologic: GCS 15 Respiratory: Plan for incentive spirometry postop Cardiovascular: Hemodynamically stable Renal: No requirement for Rankin catheter -- Strict I/Os FEN/GI: Maintain n.p.o. status-tentative scheduled OR for vascular access Zofran for nausea Famotidine for GI prophylaxis Heme/ID: TTP Severe thrombocytopenia Ordered 1 unit of platelets to be transfused in OR Planned placement of vascular access catheter by vascular surgeon at request of patient Case discussed with Ary Salas hematologyoncology, the patient requests that placement of vascular catheter to be placed in the OR under sterile conditions with anesthesia. I discussed with her placement of vascular surgery consult. I also discussed the case with Dr. Conklin With planned plasmapheresis per hematology oncology management Endocrine: Hypothyroidism Continue levothyroxine as scheduled -- SSI Prophylaxis: GI Prophylaxis Famotidine DVT Prophylaxis -- SCDs No pharmacological DVT prophylaxis in the setting of severe thrombocytopenia Lines: Peripheral IVs x2 Dispo: Level 2 consult. Plan transfer to hospitalistRemigio hematology oncology tentative scheduling , she is to be transferred to the OR for placement of vascular catheter by vascular surgery. Critical care medicine will sign off. Thank you for the consult.
--- NOTE | 2018-04-05 10:21 | ECG ---
Date Performed: 04/04/2018 Time Performed: 20:32:23 PTAGE: 67 years EKG: Sinus rhythm WITH SINUS ARRHYTHMIA NORMAL ECG Since the PREVIOUS TRACING , no significant change noted PREVIOUS TRACIN04/21/2014 16.03 DOCTOR: Sushant Waters Interpretating Date/Time 04/05/2018 10:20:48
--- NOTE | 2018-04-05 13:17 | P.PNVS ---
Subjective Subjective/Hospital Course: Patient with TTP and episodes of thrombocytopenia. For plasmapheresis cath placement. Will go ahead with Dr Tolliver in interventional suite. Thanks J Objective Vital Signs / I&O: Vital Signs 04/04/18 19:16 04/04/18 22:01 04/04/18 22:50 Temperature 97.8 F 97.6 F Pulse Rate 94 H 80 81 Respiratory Rate 17 18 18 Blood Pressure 185/78 H 139/65 115/56 L Pulse Oximetry 97 97 97 04/04/18 23:45 04/05/18 03:58 04/05/18 08:00 Temperature 98.1 F 98.7 F 97.8 F Pulse Rate 77 84 71 Respiratory Rate 18 18 16 Blood Pressure 118/62 135/66 99/53 L Pulse Oximetry 95 95 95 04/05/18 08:34 04/05/18 09:00 04/05/18 10:00 Temperature 97.8 F Pulse Rate 77 75 Respiratory Rate 18 22 Blood Pressure 128/66 141/66 H 128/62 Pulse Oximetry 97 98 04/05/18 12:00 Temperature 97.6 F Pulse Rate 74 Respiratory Rate 23 Blood Pressure 129/67 Pulse Oximetry 98 Intake & Output 04/04/18 04/05/18 04/05/18 18:59 06:59 18:59 Intake Total 200 / 200 Balance 200 / 200 Weight 76.204 kg 75.9 kg Intake: Oral 200 / 200 Other: # Voids 2 Date of Last Bowel Movement 04/04/18 04/04/18 Weight On Admission 76.204 kg Laboratory Results - last 24 hr 04/04/18 04/04/18 04/04/18 19:40 19:40 19:40 WBC 17.1 H RBC 3.07 L Hgb 10.5 L Hct 29.3 L MCV 95.7 MCH 34.4 H MCHC 35.9 RDW 17.3 H Plt Count 10 L* MPV 7.9 Prelim Diff (Auto) Slide review pending Neut % (Auto) 59.8 Lymph % (Auto) 28.7 [place] % (Auto) 10.6 H Eos % (Auto) 0.4 Baso % (Auto) 0.5 Neut # (Auto) 10.2 H Lymph # (Auto) 4.9 H [place] # (Auto) 1.8 H Eos # (Auto) 0.1 Baso # (Auto) 0.1 WBC Differential . Diff Scan Auto diff confirmed Differential Comment . Platelet Estimate Low L Platelet Morphology Enlarged H [place] Bodies Acanthocytes (Spur) 1+ H Keratocytes 1+ H Haptoglobin PT 10.7 INR 1.1 APTT 27.1 Sodium 141 Potassium 3.9 Chloride 105 Carbon Dioxide 27.5 Anion Gap 9 BUN 19 H Creatinine 0.80 Estimated GFR 72 L Random Glucose 127 H Calcium 9.6 Magnesium 2.1 Total Bilirubin 1.1 H Direct Bilirubin Indirect Bilirubin AST 59 H ALT 57 H Alkaline Phosphatase 81 Lactate Dehydrogenase Total Creatine Kinase 105 CK-MB (CK-2) 1.3 Troponin I Less than 0.02 L Total Protein 8.5 H Albumin 4.3 Urine Color Urine Clarity Urine pH Ur Specific [place] Urine Protein Urine Glucose (UA) Urine Ketones Urine Occult Blood Urine Nitrate Urine Bilirubin Urine Urobilinogen Ur Leukocyte Esterase Urine RBC Urine WBC Hyaline Casts Granular Casts Urine Mucus Micro UA Comment Ur Microscopic Review Urine Culture Comments Nasal Screen MRSA (PCR) Blood Type Blood Type Recheck Antibody Screen Direct Antiglob Test Bld Prod Order Comment 04/04/18 04/04/18 04/04/18 19:40 19:40 20:35 WBC RBC Hgb Hct MCV MCH MCHC RDW Plt Count MPV Prelim Diff (Auto) Neut % (Auto) Lymph % (Auto) [place] % (Auto) Eos % (Auto) Baso % (Auto) Neut # (Auto) Lymph # (Auto) [place] # (Auto) Eos # (Auto) Baso # (Auto) WBC Differential Diff Scan Differential Comment Platelet Estimate Platelet Morphology [place] Bodies Acanthocytes (Spur) Keratocytes Haptoglobin PT INR APTT Sodium Potassium Chloride Carbon Dioxide Anion Gap BUN Creatinine Estimated GFR Random Glucose Calcium Magnesium Total Bilirubin 0.9 Direct Bilirubin 0.2 Indirect Bilirubin 0.7 AST ALT Alkaline Phosphatase Lactate Dehydrogenase Total Creatine Kinase CK-MB (CK-2) Troponin I Total Protein Albumin Urine Color Yellow Urine Clarity Hazy H Urine pH 5.0 Ur Specific [place] 1.021 Urine Protein 30 H Urine Glucose (UA) Negative Urine Ketones Negative Urine Occult Blood Small H Urine Nitrate Negative Urine Bilirubin Negative Urine Urobilinogen Less than 2 Ur Leukocyte Esterase Moderate H Urine RBC 2 Urine WBC 19 H Hyaline Casts 4 Granular Casts 5 Urine Mucus Few H Micro UA Comment Culture indicated Ur Microscopic Review Not Reportable Urine Culture Comments Culture indicated Nasal Screen MRSA (PCR) Blood Type B Negative Blood Type Recheck Required Antibody Screen Negative Direct Antiglob Test Bld Prod Order Comment 04/05/18 04/05/18 04/05/18 08:18 08:18 08:18 WBC 15.4 H RBC 2.87 L Hgb 10.0 L Hct 28.1 L MCV 97.8 MCH 34.7 H MCHC 35.5 RDW 17.5 H Plt Count 6 L* D MPV 8.4 Prelim Diff (Auto) Slide review pending Neut % (Auto) 81.0 H Lymph % (Auto) 15.7 [place] % (Auto) 3.1 Eos % (Auto) 0.0 Baso % (Auto) 0.2 Neut # (Auto) 12.5 H Lymph # (Auto) 2.4 [place] # (Auto) 0.5 Eos # (Auto) 0.0 Baso # (Auto) 0.0 WBC Differential . Diff Scan Auto diff confirmed Differential Comment . Platelet Estimate Low L Platelet Morphology Normal [place] Bodies Present H Acanthocytes (Spur) 1+ H Keratocytes 1+ H Haptoglobin Less than 10 L PT INR APTT Sodium 143 Potassium 4.1 Chloride 108 H Carbon Dioxide 27.0 Anion Gap 8 BUN 16 Creatinine 0.75 Estimated GFR 77 L Random Glucose 164 H Calcium 9.3 Magnesium Total Bilirubin 1.3 H Direct Bilirubin Indirect Bilirubin AST 47 H ALT 48 Alkaline Phosphatase 66 Lactate Dehydrogenase 1063 H Total Creatine Kinase CK-MB (CK-2) Troponin I Total Protein 7.8 D Albumin 3.9 Urine Color Urine Clarity Urine pH Ur Specific [place] Urine Protein Urine Glucose (UA) Urine Ketones Urine Occult Blood Urine Nitrate Urine Bilirubin Urine Urobilinogen Ur Leukocyte Esterase Urine RBC Urine WBC Hyaline Casts Granular Casts Urine Mucus Micro UA Comment Ur Microscopic Review Urine Culture Comments Nasal Screen MRSA (PCR) Blood Type Blood Type Recheck Antibody Screen Direct Antiglob Test Bld Prod Order Comment 04/05/18 04/05/18 04/05/18 08:50 09:35 10:51 WBC RBC Hgb Hct MCV MCH MCHC RDW Plt Count MPV Prelim Diff (Auto) Neut % (Auto) Lymph % (Auto) [place] % (Auto) Eos % (Auto) Baso % (Auto) Neut # (Auto) Lymph # (Auto) [place] # (Auto) Eos # (Auto) Baso # (Auto) WBC Differential Diff Scan Differential Comment Platelet Estimate Platelet Morphology [place] Bodies Acanthocytes (Spur) Keratocytes Haptoglobin PT INR APTT Sodium Potassium Chloride Carbon Dioxide Anion Gap BUN Creatinine Estimated GFR Random Glucose Calcium Magnesium Total Bilirubin Direct Bilirubin Indirect Bilirubin AST ALT Alkaline Phosphatase Lactate Dehydrogenase Total Creatine Kinase CK-MB (CK-2) Troponin I Total Protein Albumin Urine Color Urine Clarity Urine pH Ur Specific [place] Urine Protein Urine Glucose (UA) Urine Ketones Urine Occult Blood Urine Nitrate Urine Bilirubin Urine Urobilinogen Ur Leukocyte Esterase Urine RBC Urine WBC Hyaline Casts Granular Casts Urine Mucus Micro UA Comment Ur Microscopic Review Urine Culture Comments Nasal Screen MRSA (PCR) Not detected Blood Type Blood Type Recheck Antibody Screen Direct Antiglob Test Negative Bld Prod Order Comment Impressions Chest X-Ray 04/04/18 19:29 CONCLUSION: 1. No acute cardiopulmonary disease.
[2018-04-05] MEDS ORDERED: Heparin 10,000 UNITS/10 ML Vial (for IV use) ONE (14:48)
--- NOTE | 2018-04-05 15:31 | IR ---
EXAM DATE: 04/05/2018 3:22 PM EST AGE/SEX: 67 years / Female INDICATIONS: Patient presents with thrombocytopenia in need of dialysis catheter placement for plasm apheresis. CLINICAL DATA: This is the patient's initial encounter. Patient reports that signs and symptoms have been present for 1 day and indicates a pain score of 0/10. MEDICAL/SURGICAL HISTORY: . Thrombocytopenia, Polymyalgia rheumatic. . Tonsillectomy, Splenect isamar, Hysterectomy. COMPARISON: No prior exams available for comparison. FLUORO TIME (min): 0.1 IMAGE SERIES: 2 ACCESS SITE: Right internal jugular vein MEDICATION(S): 2,200 units Heparin IV DEVICE(S): 14 Romanian double lumen 15cm Schon catheter . . PROCEDURE : 1. Ultrasound guided venipuncture. 2. Fluoroscopic guidance. 3. Central line placement. The risks, benefits and alternatives to the procedure were explained and verbal and written consent w as obtained. The site was prepped in sterile fashion. Full sterile technique was used, including ca p, mask, sterile gloves and gown and a large sterile sheet. Hand hygiene and 2% chlorhexidine prep w as utilized per protocol for cutaneous antisepsis with appropriate dry time for site. Sterile gel an d sterile probe cover were utilized for ultrasound guidance. The skin and subcutaneous tissues were infiltrated with local anesthetic solution. A suitable site a bruna the vein was selected with ultrasound and fluoroscopic guidance. A small incision was made. Th e vein was accessed under direct ultrasound visualization using the micropuncture technique. The timoteo ropuncture set was exchanged for a 0.035 wire. The tract was dilated. The catheter was advanced int o position under direct fluoroscopic visualization, and was advanced with the tip at the junction of the superior vena cava and rt atrium. The catheter was fixed in place with suture and a sterile dres sing was applied. The patient tolerated the procedure well and there were no complications. CONCLUSION: 1. Uncomplicated line placement as above. Electronically signed by: Sushant Tolliver MD Board Certified Radiologist 04/05/2018 3:30 PM EST
--- NOTE | 2018-04-05 15:44 | P.RAD ---
Post Procedure Progress Note - Pre Procedure Diagnosis (1) Thrombocytopenia - Post Procedure Diagnosis (1) Thrombocytopenia - Procedure Information Procedure Date: 04/05/18 Supervising Radiologist: Sushant Tolliver MD Anesthesia: Local - Plan of Activity Patient to Unit: Nursing Unit Patient Condition: Good See PACS Report for procedural detail/treatment. [facility] Radiology Procedures right Internal Jugular Hemodialysis Catheter Non-Tunneled Placement Device: dual lumen
[2018-04-05] MEDS ORDERED: Heparin 2,000 UNITS/2 ML Vial (for IV use) IV.FLUSH SCH (16:15)
[2018-04-05] MEDS ORDERED: Sod Chloride 0.9% Inj 1,000 ML IV.SIG SCH (17:00)
[2018-04-05] MEDS: SODIUM CHLOR 0.9% IV.SIG SCH (17:06)
[2018-04-05] MEDS: CALCIUM GLUCONATE IV.SIG SCH (17:06)
[2018-04-05] MEDS: ALBUMIN HUMAN 5% IV.SIG SCH (17:09)
--- NOTE | 2018-04-05 22:51 | MB ---
cc: Neal Baumann MD DATE: 04/05/2018 REASON FOR CONSULTATION: Consult requested by hospitalist for evaluation of relapsed TTP. HISTORY OF PRESENT ILLNESS: Norma is a pleasant 67-year-old female. She has a history of atypical TTP. She used to be under the care of Dr. Woodard. The patient had been treated with plasmapheresis. The last plasmapheresis was [address] Woodard retired, the patient transferred her care to my colleague, Dr. Cali Salazar. The patient was followed by Dr. Salazar for maybe a year or so. The last time she saw Dr. Salazar was 3 years ago. She was lost to followup. The patient stated that her primary physician, , has retired. She is now being followed by Drs. Tobin and Kristian. The patient recently noticed bruising and petechiae. A blood test was ordered by her primary physician. The result came back, which showed very low platelets. She was directed to the emergency room. Patient came to the emergency room last night. CBC on admission showed white count 17.1, hemoglobin 10.5, platelet count is 10,000. Comprehensive metabolic profile shows total bilirubin of 1.3, AST 59, ALT 57, creatinine 0.80. The patient is admitted to the hospital. Hematology service is consulted to arrange plasmapheresis for TTP. The patient was started on Solu-Medrol IV every 8 hours in the emergency room. We have consulted account solutions analyst for Vas-Cath placement. The patient wanted to have in the OR by a surgeon as she does not want to do it at bedside due to the previous bad experience. Dr. Conklin, vascular surgeon, was consulted. Dr. Conklin has discussed with interventional radiologist, Dr. Tolliver. Arrangements were made for the patient to have a Vas-Cath by IR. This was accomplished. After that, the patient was started on plasmapheresis. She is in the intensive care unit and she just finished the plasmapheresis. The patient is feeling better after the plasmapheresis. She still has bruises and petechia in her lower legs. She does not have any ELECTRICAL AND RADIO MECHANIC symptoms. She is not in renal failure. She does not have any fevers. I had ordered the LDH, KORIN and haptoglobin earlier today. The haptoglobin came back low and LDH is very high. Direct Karly test came back negative. 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 The combination of this is c/w TTP. PAST MEDICAL HISTORY: TTP, polymyalgia rheumatica, Hypothyroidism PAST SURGICAL HISTORY: Hysterectomy, Vas-Cath placement, splenectomy, tonsillectomy. ALLERGIES: ADHESIVE. MEDICATIONS PRIOR TO COMING TO HOSPITAL: 1. Vitamin C. 2. Calcium citrate. 3. Vitamin D3. 4. Folic acid. 5. Levothyroxine. 6. Potassium. 7. Prednisone 40 mg daily. 8. Vitamin B6. FAMILY HISTORY: None for malignancy. SOCIAL HISTORY: She does not smoke cigarettes. She drinks alcohol on a regular basis. PHYSICAL EXAMINATION: GENERAL: She is a well-developed, well-nourished white female, in no apparent distress. VITAL SIGNS: Temperature 97.8, heart rate 74, blood pressure 129/62, O2 saturation 95% on room air. HEENT: PERRLA. EOMI, anicteric. No oral lesions noted. NECK: No lymphadenopathy noted. LUNGS: Clear. No wheezing, rhonchi or rales. HEART: Regular rate and rhythm. ABDOMEN: Soft, nontender. No hepatosplenomegaly. EXTREMITIES: No pedal edema. NEUROLOGIC: Awake, alert, oriented x 3. SKIN: Multiple bruises and petechia. 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 This is most likely due to relapsed thrombotic thrombocytopenic purpura. PLAN: I have reviewed her available records and I had an extensive discussion with the patient and her daughter regarding relapsed TTP. The patient previously had been treated with plasmapheresis and Rituxan and she had significant response. She was in remission for 4 years. She was lost to followup with Dr. Salazar for the last 3 years. She was advised that she should reestablish with a web analyst as her condition is very critical and a web analyst would be able to machine operator hop picker TTP sooner so that she can get the treatment as soon as possible. She told me that was her fault, that she should have continued with Dr. Salazar for follow up. We will continue daily plasmapheresis. We will monitor total bilirubin, LDH, and CBC daily. Dr. Salazar will resume her care on Saturday when he returns. Thank you for asking my opinion. MD TOMÁS Boyd/nancy/vanessa , 09:22 PM , 09:35 PM DENNIS
[2018-04-06] MEDS ORDERED: Chlorhexidine Gluconate 2% 1 Pack (2 Cloths) TOPICAL PRN (04:00)
[2018-04-06 05:15] LABS: Alanine Aminotransferase 24 U/L (10-53); Albumin 4.2 g/dL (3.4-5.0); Alkaline Phosphatase 37 U/L (45-117); Anion Gap 10 meq/L (5-15); Aspartate Aminotransferase 26 U/L (15-37); Blood Urea Nitrogen 24 mg/dL (7-18); Calcium 7.9 mg/dL (8.5-10.1); Carbon Dioxide 22.4 meq/L (21.0-32.0); Chloride 113 meq/L (98-107); Glomerular Filtration Rate 71 mL/min (>89); Glucose,Random 216 mg/dL (74-106); Lactate Dehydrogenase 559 U/L (84-246); Potassium 3.8 meq/L (3.5-5.1); Sodium 145 meq/L (136-145); Total Protein 5.9 g/dL (6.4-8.2)
[2018-04-06] MEDS: Chlorhexidine Gluconate 2% 1 Pack (2 Cloths) TOPICAL SCH (05:23)
[2018-04-06] MEDS: MethylPREDNISolone Sod Succinate Inj 40 MG/ML Vial IV.PUSH SCH ×2 (06:13→16:27)
[2018-04-06] MEDS: Levothyroxine 75 MCG Tablet PO SCH (06:13)
[2018-04-06] MEDS: Calcium/Vitamin D 250/125 MG Tablet PO SCH (08:11)
[2018-04-06] MEDS: Senna/Docusate Sodium 8.6/50 MG Tablet PO SCH ×2 (08:12→21:18)
[2018-04-06] MEDS: Folic Acid 1 MG Tablet PO SCH ×2 (08:12→21:18)
[2018-04-06] MEDS: Ascorbic Acid 500 MG Tablet PO SCH ×2 (08:12→21:17)
[2018-04-06] MEDS: Famotidine 20 MG Tablet PO SCH ×2 (08:12→21:17)
--- NOTE | 2018-04-06 08:17 | P.PNIM ---
Subjective Interval history: Patient seen and examined this morning at the bedside No subective fever or chills No headache No facial droop or slurred speech s/p 1st session of Pl-Ex on 04/05 tolerating PO wbc inc s/p steroid Physical Exam Vital signs: Last Vital Signs Temp 97.9 F 04/06/18 04:00 Pulse 74 04/06/18 05:00 Resp 21 04/06/18 05:00 BP 95/50 L 04/06/18 05:00 Pulse Ox 95 04/06/18 05:00 Intake & Output 04/04/18 04/05/18 04/06/18 04/07/18 06:59 06:59 06:59 06:59 Intake Total 200 / 200 4265 / 4265 Output Total 760 / 760 Balance 200 / 200 3505 / 3505 Weight 76.204 kg 75.9 kg 78.5 kg general: NAD HEENT: + vascular access. EOMI, PERRLA, NO PETECHIA in mouth CVS: S1/S2 Resp: CTA bilaterally GI: soft, non tender, non distended, no guarding or rebound ext: Scattered petechia on legs, no calf tenderness Urinary Catheter Management Female External: Cath placed during this visit: no Results Labs CBC & Chem 7: 04/06/18 09:34 04/06/18 03:53 Labs: Microbiology 04/04/18 20:35 Clean Catch Urine Urine Culture - Preliminary Immature growth - reincubate Imaging Imaging: Impressions Catheter Placement 04/05/18 00:00 CONCLUSION: 1. Uncomplicated line placement as above. Assessment and Plan Plan patient is a 67F with history of TTP presenting to ED found to be severely thrombocytopenic requiring vasc cath placement and PL-eX with hematology Hematology: TTP - known history of TTP lost to follow up over recent years - PL-eX as per hematology - continue solumedrol and taper to q12hrs - PPI while on steroids - hemolysis labs daily ( ldh, finbrinogen) - PL-eX while inpatient - hematology consulted and recc appreciated - folic acid endocrinology: hypothyroidism - continue synthroid 75mcg code: fc dvt ppx dispo: med/surg Progress Note: Quality VTE Deep Vein Thrombosis/Pulmonary Embolism Present on Admission: No
--- NOTE | 2018-04-06 10:33 | P.PNONC ---
Subjective Interval history: Afebrile Patient reports she is feeling stronger after the first plasma exchange yesterday Denies any bleeding Upset that the Vas-Cath was not able to be placed in the OR Objective Vital Signs/Intake & Output: Vital Signs 04/05/18 12:00 04/05/18 15:43 04/05/18 15:58 Temperature 97.6 F Pulse Rate 74 71 78 Respiratory Rate 23 20 27 H Blood Pressure 129/67 152/72 H 152/72 H Pulse Oximetry 98 95 95 04/05/18 16:00 04/05/18 16:28 04/05/18 20:00 Temperature 97.8 F 97.8 F 97.6 F Pulse Rate 71 74 88 Respiratory Rate 22 23 23 Blood Pressure 129/62 129/62 114/56 L Pulse Oximetry 94 L 95 94 L 04/05/18 21:00 04/05/18 22:00 04/05/18 23:00 Temperature Pulse Rate 95 H 94 H 84 Respiratory Rate 16 20 20 Blood Pressure 109/73 119/59 L Pulse Oximetry 96 95 95 04/05/18 23:03 04/05/18 23:04 04/06/18 00:00 Temperature 98.5 F Pulse Rate 82 87 84 Respiratory Rate 20 23 17 Blood Pressure 92/44 L 97/55 L 100/55 L Pulse Oximetry 95 95 97 04/06/18 01:00 04/06/18 02:00 04/06/18 02:05 Temperature Pulse Rate 81 73 73 Respiratory Rate 14 16 17 Blood Pressure 99/52 L 83/44 L 86/50 L Pulse Oximetry 93 L 94 L 94 L 04/06/18 03:00 04/06/18 03:01 04/06/18 04:00 Temperature 97.9 F Pulse Rate 78 83 78 Respiratory Rate 20 18 20 Blood Pressure 152/65 H Pulse Oximetry 94 L 95 95 04/06/18 04:01 04/06/18 05:00 04/06/18 07:00 Temperature Pulse Rate 78 74 77 Respiratory Rate 20 21 18 Blood Pressure 94/44 L 95/50 L 101/52 L Pulse Oximetry 95 95 96 04/06/18 08:00 04/06/18 09:00 Temperature 97.7 F Pulse Rate 67 84 Respiratory Rate 19 37 H Blood Pressure 106/58 L Pulse Oximetry 97 90 L Intake & Output 1204/06/18 04/06/18 18:59 06:59 18:59 Intake Total 3740 / 3740 525 / 525 Output Total 200 / 200 560 / 560 Balance 3540 / 3540 -35 / -35 Weight 167 lb 5.294 oz 173 lb 1.006 oz Intake: IV 3500 / 3500 285 / 285 Alburx 5% Inj 3,500 ML @ 0 mls/ 3500 / 3500 hr IV.SIG Q24H JACKI Rx#:[id number] Calcium Gluconate Inj 3.5 GM In 285 / 285 NS Inj 250 ML @ 142.5 mls/hr IV.SIG Q24H JACKI Rx#:[id number] Oral 240 / 240 240 / 240 Output: Urine 560 / 560 Urine Amount (Catheter) 200 / 200 Female External 200 / 200 Other: # Voids 1 Date of Last Bowel Movement 04/04/18 04/04/18 04/06/18 Result Diagrams: 04/06/18 09:34 04/06/18 03:53 Laboratory Results: Laboratory Results - last 24 hr 04/05/18 04/05/18 04/05/18 08:50 09:35 10:51 Sodium Potassium Chloride Carbon Dioxide Anion Gap BUN Creatinine Estimated GFR Random Glucose Calcium Total Bilirubin AST ALT Alkaline Phosphatase Lactate Dehydrogenase Total Protein Albumin Nasal Screen MRSA (PCR) Not detected Direct Antiglob Test Negative Bld Prod Order Comment 04/06/18 03:53 Sodium 145 Potassium 3.8 Chloride 113 H Carbon Dioxide 22.4 Anion Gap 10 BUN 24 H Creatinine 0.81 Estimated GFR 71 L Random Glucose 216 H Calcium 7.9 L D Total Bilirubin 1.3 H AST 26 ALT 24 Alkaline Phosphatase 37 L Lactate Dehydrogenase 559 H Total Protein 5.9 L D Albumin 4.2 Nasal Screen MRSA (PCR) Direct Antiglob Test Bld Prod Order Comment Culture Results: Microbiology 04/04/18 20:35 Urine Culture - Preliminary Clean Catch Urine Immature growth - reincubate Imaging Studies: Impressions Catheter Placement 04/05/18 00:00 CONCLUSION: 1. Uncomplicated line placement as above. Medications: Active Medications Generic Name Dose Route Start Last Admin Trade Name Freq PRN Reason Stop Dose Admin Ascorbic Acid 500 mg 04/05/18 09:00 04/06/18 08:12 Vitamin C PO 500 mg BID JACKI Administration Calcium/Vitamin D 2 tab 04/05/18 09:00 04/06/18 08:11 Oscal With D 250/125 Mg PO 2 tab DAILY JACKI Administration Chlorhexidine Gluconate 3 pack 04/06/18 04:00 04/06/18 05:23 Chlorhexidine 2% Cloth TOPICAL 04/11/18 03:59 3 pack DAILY@0400 JACKI Administration Diphenhydramine HCl 25 mg 04/05/18 17:00 04/05/18 16:20 Benadryl Inj IV.PUSH 04/11/18 16:59 25 mg UNSCH PRN Administration SEE LABEL COMMENTS Famotidine 20 mg 04/05/18 09:00 04/06/18 08:12 Pepcid PO 20 mg BID JACKI Administration Folic Acid 1 mg 04/05/18 09:00 04/06/18 08:12 Folic Acid PO 1 mg BID JACKI Administration Gentamicin Sulfate 10 mg 04/05/18 17:00 04/05/18 17:51 Gentamicin Inj OTHER 04/11/18 16:59 10 mg UNSCH JACKI Administration Albumin Human 3,500 mls @ 0 mls/hr 04/05/18 17:00 04/05/18 17:17 Alburx 5% Inj IV.SIG 04/09/18 17:01 Infused Q24H JACKI Infusion Calcium Gluconate 3.5 gm/ 285 mls @ 142.5 mls/hr 04/05/18 17:00 04/06/18 06: 21 Sodium Chloride IV.SIG 04/09/18 18:59 Infused Q24H JACKI Infusion Levothyroxine Sodium 75 mcg 04/05/18 06:00 04/06/18 06:13 Synthroid PO 75 mcg DAILY@0600 JACKI Administration Methylprednisolone Sodium Succinate 60 mg 04/05/18 06:00 04/06/18 06:13 Solumedrol Inj IV.PUSH 60 mg Q8HR JACKI Administration Pyridoxine HCl 25 mg 04/05/18 09:00 04/06/18 08:11 Vitamin B-6 PO 25 mg TID JACKI Administration Senna/Docusate Sodium 1 tab 04/05/18 09:00 04/06/18 08:12 Lorri-Colace PO Not Given BID JACKI Sodium Chloride 2 ml 04/05/18 09:00 04/06/18 08:11 Ns Flush IV.FLUSH 2 ml BID JACKI Administration Objective Remarks: GENERAL: Older female resting in bed in no acute distress SKIN: Warm and dry. Vas-Cath to right neck. Mild erythema but no oozing at insertion multi site leasing consultant: Normocephalic. EYES: No scleral icterus. No injection or drainage. NECK: Supple, trachea midline. No JVD or lymphadenopathy. CARDIOVASCULAR: Regular rate and rhythm without murmurs. RESPIRATORY: Breath sounds equal bilaterally. No accessory muscle use. GASTROINTESTINAL: Abdomen soft, non-tender, nondistended. EXTREMITIES: No cyanosis. Mild petechiae MUSCULOSKELETAL: Adequate muscle tone. NEUROLOGICAL: No obvious focal deficit. Awake, alert, and oriented x3. Assessment/Plan - Plan 67-year-old female with history of TTP admitted after she noticed bruising and petechiae. Her primary care physician ordered CBC with results coming back with very low platelets. She was directed to the emergency room. Hematology was consulted for plasmapheresis arrangement for TTP. Patient was started on Solu-Medrol IV every 8 hours in the emergency room. 1. Patient had Vas-Cath placement yesterday and interventional radiology. 1 unit platelets were orientation & mobility specialist however she did not require any transfusion. Her CBC is still pending today. She denies any bleeding. 2. The patient reports she is feeling better today after 1 plasma exchange yesterday. Dialysis will give patient another plasma exchange later today. Goal is for 5 days however this may change depending on platelet count. 3. Fibrinogen will be checked. Reviewed with the patient that the plasma exchange can cause depletion of coagulation factors. Continue to monitor for bleeding. The exam, history, and the medical decision-making described in the above note were completed with the assistance of the mid-level provider. I reviewed and agree with the findings presented. I attest that I had a [id number] encounter with the patient on the same day, and personally performed and documented my assessment and findings in the medical record. Patient seen and examined She is feeling better after the first plasmapheresis Headache has improved No new petechiae or bruises Patient is currently getting second plasmapheresis We will continue plasmapheresis every day Patient wants to discuss with Dr. Salazar regarding Rituxan when her platelet count improves. She had Rituxan before LDH has come down. Platelets also have improved. Dr. Salazar will resume the care in the morning
[2018-04-06 10:46] LABS: Baso % (Auto) 0.1 % (0.0-2.0); Hemoglobin 9.8 gm/dL (11.6-15.3); Lymph # (Auto) 4.2 th/mm3 (1.0-4.8); Lymph % (Auto) 17.9 % (9.0-44.0); Mean Corpuscular Hemoglobin 34.4 pg (27.0-34.0); Mean Corpuscular Volume 98.4 fL (80.0-100.0); Mean Platelet Volume 7.2 fL (7.0-11.0); Mono # (Auto) 1.2 th/mm3 (0.0-0.9); Mono % (Auto) 5.2 % (0.0-8.0); Neut # (Auto) 17.9 th/mm3 (1.8-7.7); Neut % (Auto) 76.8 % (16.0-70.0); Platelet Count 26 th/mm3 (150-450); Red Blood Count 2.84 mil/mm3 (4.00-5.30); Red Cell Distribution Width 18.5 % (11.6-17.2); White Blood Count 23.3 th/mm3 (4.0-11.0)
[2018-04-06 11:21] LABS: Acanthocytes 1+; Helmet Cells Occ
[2018-04-06 11:22] LABS: Platelet Morphology Normal (Normal)
[2018-04-06 11:24] LABS: Howell-Jolly Bodies Present
[2018-04-06] MEDS ORDERED: Sodium Chlor 0.9% Inj 250 ML IV.SIG SCH (12:00)
[2018-04-06] MEDS: ALBUMIN HUMAN 5% IV.SIG SCH (20:26)
[2018-04-06] MEDS: Anticoagulant Citrate Dextrose 1,000 ML Solution EXTRACORPO SCH (20:27)
[2018-04-06] MEDS: SODIUM CHLOR 0.9% IV.SIG SCH (20:28)
[2018-04-06] MEDS: CALCIUM GLUCONATE IV.SIG SCH (20:28)
[2018-04-06] MEDS: MethylPREDNISolone Sod Succinate Inj 125 MG/2 ML Vial IV.PUSH SCH (21:16)
[2018-04-07] MEDS: Levothyroxine 75 MCG Tablet PO SCH (05:57)
[2018-04-07] MEDS: Chlorhexidine Gluconate 2% 1 Pack (2 Cloths) TOPICAL SCH (05:57)
[2018-04-07 06:04] LABS: Hematocrit 26.1 % (35.0-46.0); Hemoglobin 9.2 gm/dL (11.6-15.3); Lymph # (Auto) 4.5 th/mm3 (1.0-4.8); Lymph % (Auto) 18.5 % (9.0-44.0); Mean Corpuscular HGB Conc 35.4 % (32.0-36.0); Mean Corpuscular Hemoglobin 34.5 pg (27.0-34.0); Mean Corpuscular Volume 97.5 fL (80.0-100.0); Mono # (Auto) 1.5 th/mm3 (0.0-0.9); Mono % (Auto) 6.1 % (0.0-8.0); Neut # (Auto) 18.1 th/mm3 (1.8-7.7); Neut % (Auto) 75.4 % (16.0-70.0); Platelet Count 39 th/mm3 (150-450); Red Blood Count 2.68 mil/mm3 (4.00-5.30); Red Cell Distribution Width 18.9 % (11.6-17.2)
[2018-04-07 06:26] LABS: Albumin 4.7 g/dL (3.4-5.0); Anion Gap 7 meq/L (5-15); Aspartate Aminotransferase 14 U/L (15-37); Blood Urea Nitrogen 15 mg/dL (7-18); Calcium 8.4 mg/dL (8.5-10.1); Carbon Dioxide 25.9 meq/L (21.0-32.0); Chloride 113 meq/L (98-107); Glomerular Filtration Rate 85 mL/min (>89); Glucose,Random 163 mg/dL (74-106); Potassium 3.8 meq/L (3.5-5.1); Sodium 146 meq/L (136-145)
[2018-04-07 06:28] LABS: Lactate Dehydrogenase 241 U/L (84-246)
[2018-04-07 06:32] LABS: Alanine Aminotransferase 18 U/L (10-53); Alkaline Phosphatase 24 U/L (45-117); Total Protein 5.7 g/dL (6.4-8.2)
--- NOTE | 2018-04-07 07:57 | P.PNONC ---
Subjective Interval history: Patient seen and examined, vital signs, labs, medications including plasma exchange records were reviewed. Subjectively; patient reports feeling much improved, she reports her pain, petechial rashes and headaches have resolved. She wants to know if she may be transferred out of the ICU and if she is able to ambulate. Objective Vital Signs/Intake & Output: Vital Signs 04/06/18 08:00 04/06/18 09:00 04/06/18 09:01 Temperature 97.7 F Pulse Rate 67 84 81 Respiratory Rate 19 37 H 24 Blood Pressure 106/58 L 95/67 L Pulse Oximetry 97 90 L 94 L 04/06/18 10:00 04/06/18 11:00 04/06/18 12:00 Temperature Pulse Rate 74 75 86 Respiratory Rate 19 18 35 H Blood Pressure 111/55 L 101/69 128/60 Pulse Oximetry 95 96 98 04/06/18 13:00 04/06/18 13:07 04/06/18 13:26 Temperature 97.6 F Pulse Rate 99 H 93 H 92 H Respiratory Rate 29 H 20 30 H Blood Pressure 124/83 124/83 113/58 L Pulse Oximetry 96 95 95 04/06/18 14:00 04/06/18 15:00 04/06/18 16:00 Temperature Pulse Rate 90 82 87 Respiratory Rate 26 H 27 H 15 Blood Pressure 109/60 121/60 115/55 L Pulse Oximetry 95 96 97 04/06/18 17:00 04/06/18 18:00 04/06/18 19:00 Temperature Pulse Rate 74 71 75 Respiratory Rate 18 21 22 Blood Pressure 106/57 L 109/57 L Pulse Oximetry 96 96 95 04/06/18 19:01 04/06/18 19:15 04/06/18 19:30 Temperature Pulse Rate 77 79 75 Respiratory Rate 24 24 22 Blood Pressure 116/59 L 105/53 L 100/59 L Pulse Oximetry 96 95 97 04/06/18 19:45 04/06/18 20:00 04/06/18 20:15 Temperature 97.8 F Pulse Rate 80 75 74 Respiratory Rate 20 24 21 Blood Pressure 130/66 113/59 L 105/59 L Pulse Oximetry 98 98 98 04/06/18 20:30 04/06/18 20:45 04/06/18 21:00 Temperature Pulse Rate 78 80 74 Respiratory Rate 21 28 H 29 H Blood Pressure 114/60 116/56 L 109/58 L Pulse Oximetry 98 96 98 04/06/18 21:07 04/06/18 22:00 04/06/18 23:00 Temperature Pulse Rate 75 81 75 Respiratory Rate 23 22 15 Blood Pressure 115/58 L 117/58 L 119/58 L Pulse Oximetry 98 97 95 04/07/18 00:00 04/07/18 01:00 04/07/18 02:00 Temperature 97.9 F Pulse Rate 79 74 70 Respiratory Rate 21 19 13 Blood Pressure 108/56 L 110/56 L 114/56 L Pulse Oximetry 94 L 94 L 94 L 04/07/18 03:00 04/07/18 04:00 04/07/18 05:00 Temperature 97.8 F Pulse Rate 62 63 61 Respiratory Rate 17 13 20 Blood Pressure 100/53 L 107/57 L 98/50 L Pulse Oximetry 94 L 95 96 04/07/18 06:00 Temperature Pulse Rate 68 Respiratory Rate 38 H Blood Pressure 116/65 Pulse Oximetry 95 Intake & Output 04/06/18 04/07/18 04/07/18 18:59 06:59 18:59 Intake Total 0 / 0 500 / 500 4035 / 4035 Output Total 3500 / 3500 Balance 0 / 0 -3000 / -3000 4035 / 4035 Weight 78.5 kg 79.5 kg Intake: IV 4035 / 4035 Alburx 5% Inj 3,500 ML @ 0 mls/ 3500 / 3500 hr IV.SIG Q24H JACKI Rx#:[id number] Calcium Gluconate Inj 3.5 GM In 285 / 285 NS Inj 250 ML @ 142.5 mls/hr IV.SIG Q24H JACKI Rx#:[id number] NS Inj 250 ML @ 15 mls/hr IV. 250 / 250 SIG ONCE JACKI Rx#:[id number] Oral 500 / 500 Intake (Blood Product) Amt 0 / 0 Pre-Pooled Cryo Thawed 10units 0 / 0 Unit [id number] Output: Plasma Exchange Amount 3500 / 3500 Other: # Voids 5 2 Date of Last Bowel Movement 04/06/18 04/06/18 # Bowel Movements 0 Result Diagrams: 04/07/18 05:45 04/07/18 05:45 Laboratory Results: Laboratory Results - last 24 hr 04/06/18 04/06/18 04/06/18 09:34 09:34 11:22 WBC 23.3 H RBC 2.84 L Hgb 9.8 L Hct 28.0 L MCV 98.4 MCH 34.4 H MCHC 35.0 RDW 18.5 H Plt Count 26 L D MPV 7.2 Prelim Diff (Auto) Slide review pending Neut % (Auto) 76.8 H Lymph % (Auto) 17.9 [place] % (Auto) 5.2 Eos % (Auto) 0.0 Baso % (Auto) 0.1 Neut # (Auto) 17.9 H Lymph # (Auto) 4.2 [place] # (Auto) 1.2 H Eos # (Auto) 0.0 Baso # (Auto) 0.0 WBC Differential . Diff Scan Auto diff confirmed Differential Comment . Platelet Estimate Low L Platelet Morphology Normal Helmet Cells Occ H Merlos-Emet Bodies Present H Acanthocytes (Spur) 1+ H Keratocytes 1+ H Fibrinogen 75 L* Sodium Potassium Chloride Carbon Dioxide Anion Gap BUN Creatinine Estimated GFR Random Glucose Calcium Total Bilirubin AST ALT Alkaline Phosphatase Lactate Dehydrogenase Total Protein Albumin Blood Bank Comment 04/07/18 04/07/18 04/07/18 05:45 05:45 05:45 WBC 24.0 H RBC 2.68 L Hgb 9.2 L Hct 26.1 L MCV 97.5 MCH 34.5 H MCHC 35.4 RDW 18.9 H Plt Count 39 L D MPV 8.0 Prelim Diff (Auto) Slide review pending Neut % (Auto) 75.4 H Lymph % (Auto) 18.5 [place] % (Auto) 6.1 Eos % (Auto) 0.0 Baso % (Auto) 0.0 Neut # (Auto) 18.1 H Lymph # (Auto) 4.5 [place] # (Auto) 1.5 H Eos # (Auto) 0.0 Baso # (Auto) 0.0 WBC Differential Diff Scan Differential Comment . Platelet Estimate Platelet Morphology Helmet Cells Merlos-Emet Bodies Acanthocytes (Spur) Keratocytes Fibrinogen 53 L* Sodium 146 H Potassium 3.8 Chloride 113 H Carbon Dioxide 25.9 Anion Gap 7 BUN 15 Creatinine 0.69 Estimated GFR 85 L Random Glucose 163 H Calcium 8.4 L Total Bilirubin 0.8 AST 14 L ALT 18 Alkaline Phosphatase 24 L Lactate Dehydrogenase 241 Total Protein 5.7 L Albumin 4.7 Blood Bank Comment Culture Results: Microbiology 04/04/18 20:35 Urine Culture - Final Clean Catch Urine >100,000 cfu/mL mixed gram positive darlene (probable contaminantes) Medications: Active Medications Generic Name Dose Route Start Last Admin Trade Name Freq PRN Reason Stop Dose Admin Ascorbic Acid 500 mg 04/05/18 09:00 04/06/18 21:17 Vitamin C PO 500 mg BID JACKI Administration Calcium/Vitamin D 2 tab 04/05/18 09:00 04/06/18 08:11 Oscal With D 250/125 Mg PO 2 tab DAILY JACKI Administration Chlorhexidine Gluconate 3 pack 04/06/18 04:00 04/07/18 05:57 Chlorhexidine 2% Cloth TOPICAL 04/11/18 03:59 Not Given DAILY@0400 PENDING SALE TO [facility] Diphenhydramine HCl 25 mg 04/05/18 17:00 04/06/18 20:25 Benadryl Inj IV.PUSH 04/11/18 16:59 25 mg UNSCH PRN Administration SEE LABEL COMMENTS Famotidine 20 mg 04/05/18 09:00 04/06/18 21:17 Pepcid PO 20 mg BID JACKI Administration Folic Acid 1 mg 04/05/18 09:00 04/06/18 21:18 Folic Acid PO 1 mg BID JACKI Administration Gentamicin Sulfate 10 mg 04/05/18 17:00 04/05/18 17:51 Gentamicin Inj OTHER 04/11/18 16:59 10 mg UNSCH JACKI Administration Albumin Human 3,500 mls @ 0 mls/hr 04/05/18 17:00 04/07/18 07:34 Alburx 5% Inj IV.SIG 04/09/18 17:01 Infused Q24H JACKI Infusion Calcium Gluconate 3.5 gm/ 285 mls @ 142.5 mls/hr 04/05/18 17:00 04/07/18 07: 34 Sodium Chloride IV.SIG 04/09/18 18:59 Infused Q24H JACKI Infusion Levothyroxine Sodium 75 mcg 04/05/18 06:00 04/07/18 05:57 Synthroid PO 75 mcg DAILY@0600 JACKI Administration Methylprednisolone Sodium Succinate 60 mg 04/06/18 21:00 04/06/18 21:16 Solumedrol Inj IV.PUSH 60 mg Q12HR JACKI Administration Pyridoxine HCl 25 mg 04/05/18 09:00 04/06/18 18:42 Vitamin B-6 PO Not Given TID JACKI Senna/Docusate Sodium 1 tab 04/05/18 09:00 04/06/18 21:18 Lorri-Colace PO Not Given BID JACKI Sodium Chloride 2 ml 04/05/18 09:00 04/06/18 21:18 Ns Flush IV.FLUSH 2 ml BID JACKI Administration Sodium Citrate 1,000 ml 04/05/18 17:00 04/06/18 20:27 Acd-A Solution EXTRACORPO 04/09/18 09:01 1,000 ml DAILY JACKI Administration Objective Remarks: GENERAL: Middle-aged female, sitting up in bed, appears to be no acute distress she has a pleasant disposition. Appears to be somewhat pale. SKIN: Warm and dry. HEAD: Normocephalic. EYES: No scleral icterus. No injection or drainage. NECK: Right-sided IJ Vas-Cath in place, supple, trachea midline. No JVD or lymphadenopathy. LYMPHATIC: No adenopathy. CARDIOVASCULAR: Regular rate and rhythm without murmurs. RESPIRATORY: Breath sounds equal bilaterally. No accessory muscle use. GASTROINTESTINAL: Abdomen soft, non-tender, nondistended. EXTREMITIES: No cyanosis, or edema. MUSCULOSKELETAL: Adequate muscle tone. NEUROLOGICAL: No obvious focal deficit. Awake, alert, and oriented x3. PSYCHIATRIC: Appropriate mood and affect; insight and judgment normal. 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 Her primary care physician ordered CBC with results coming back with very low platelets. She was directed to the emergency room. Hematology was consulted for plasmapheresis arrangement for TTP. Patient was started on Solu-Medrol IV every 8 hours in the emergency room. Recommendations: 1. Recurrent thrombotic thrombocytopenic purpura: Currently on plasma exchange treatments, today will be day 3 out of 5 planned treatments. On corticosteroids. Platelet count improving, LDH normalized. Clinically much improved. She feels her symptoms of body aches and confusion are better. 2. Low fibrinogen: Likely related to plasma exchange. I have ordered 1 unit cryoprecipitate. Repeat fibrinogen levels tomorrow morning. 3. Clear to transfer to oncology unit today. 4. Continue corticosteroids for the time being, once out of the hospital I will coordinate rituximab infusions in my clinic. She will likely also require a tapering 5 plasma exchanges in the outpatient setting as well.
[2018-04-07] MEDS: Folic Acid 1 MG Tablet PO SCH ×2 (09:00→21:23)
[2018-04-07] MEDS: Calcium/Vitamin D 250/125 MG Tablet PO SCH (09:00)
[2018-04-07] MEDS: Ascorbic Acid 500 MG Tablet PO SCH ×2 (09:01→21:23)
[2018-04-07] MEDS: MethylPREDNISolone Sod Succinate Inj 125 MG/2 ML Vial IV.PUSH SCH ×2 (09:01→21:23)
[2018-04-07] MEDS: Senna/Docusate Sodium 8.6/50 MG Tablet PO SCH ×2 (09:01→21:17)
[2018-04-07] MEDS: Famotidine 20 MG Tablet PO SCH ×2 (09:01→21:24)
[2018-04-07 10:20] LABS: Howell-Jolly Bodies Present; Lymphocytes 13 % (9-44); Metamyelocytes 1 % (0-1); Monocytes 9 % (0-8)
[2018-04-07 10:21] LABS: Basophilic Stippling Moderate; Dimorphic RBC Present; Platelet Morphology Normal (Normal)
--- NOTE | 2018-04-07 12:05 | P.PNIM ---
Subjective Interval history: 67yo w f admitted with profound thrombocytopenia started on iv steroids and plasma exchange pt seen and examined, she is doing much better, denies sob or chest pain, no nv , no bleeding Physical Exam Vital signs: Last Vital Signs Temp 98.2 F 04/07/18 09:49 Pulse 83 04/07/18 09:49 Resp 16 04/07/18 09:49 BP 134/72 04/07/18 09:49 Pulse Ox 95 04/07/18 06:00 Intake & Output 04/05/18 04/06/18 04/07/18 04/08/18 06:59 06:59 06:59 06:59 Intake Total 200 / 200 4265 / 4265 500 / 500 4272 / 4272 Output Total 760 / 760 3500 / 3500 Balance 200 / 200 3505 / 3505 -3000 / -3000 4272 / 4272 Weight 76.204 kg 75.9 kg 79.5 kg wdwn pleasant 67yo w f aaox3 nad heart s1s2 reg lungs clear no wrr abd soft nondt pos bs no mass ext no edema ,no calf tenderness, petechia improved Urinary Catheter Management Female External: Cath placed during this visit: no Results Labs CBC & Chem 7: 04/07/18 05:45 04/07/18 05:45 Labs: Microbiology 04/04/18 20:35 Clean Catch Urine Urine Culture - Final >100,000 cfu/mL mixed gram positive darlene (probable contaminantes) Assessment and Plan Plan ACUTE THROMBOCTYOPENIA due to TTP - cont steroids and plasma exchange as per hematology, HYPOTHYROIDISM - cont synthroid stable NC ANEMIA - chronic LEUKOCYTOSIS - reactive due to solumedrol Progress Note: Quality VTE Deep Vein Thrombosis/Pulmonary Embolism Present on Admission: No
[2018-04-07] MEDS: Anticoagulant Citrate Dextrose 1,000 ML Solution EXTRACORPO SCH (14:45)
[2018-04-07] MEDS: CALCIUM GLUCONATE IV.SIG SCH (14:45)
[2018-04-07] MEDS: SODIUM CHLOR 0.9% IV.SIG SCH (14:45)
[2018-04-07] MEDS: ALBUMIN HUMAN 5% IV.SIG SCH (16:59)
[2018-04-08] MEDS: Chlorhexidine Gluconate 2% 1 Pack (2 Cloths) TOPICAL SCH (05:30)
[2018-04-08] MEDS: Levothyroxine 75 MCG Tablet PO SCH (05:37)
[2018-04-08 06:31] LABS: Baso % (Auto) 0.1 % (0.0-2.0); Hematocrit 25.4 % (35.0-46.0); Hemoglobin 8.9 gm/dL (11.6-15.3); Lymph # (Auto) 6.4 th/mm3 (1.0-4.8); Lymph % (Auto) 24.6 % (9.0-44.0); Mean Corpuscular Hemoglobin 34.5 pg (27.0-34.0); Mean Corpuscular Volume 98.5 fL (80.0-100.0); Mean Platelet Volume 9.2 fL (7.0-11.0); Mono # (Auto) 1.7 th/mm3 (0.0-0.9); Mono % (Auto) 6.5 % (0.0-8.0); Neut # (Auto) 17.8 th/mm3 (1.8-7.7); Neut % (Auto) 68.8 % (16.0-70.0); Platelet Count 75 th/mm3 (150-450); Red Blood Count 2.57 mil/mm3 (4.00-5.30); Red Cell Distribution Width 18.6 % (11.6-17.2); White Blood Count 25.9 th/mm3 (4.0-11.0)
--- NOTE | 2018-04-08 07:59 | P.PNONC ---
Subjective Interval history: Patient seen and examined, vital signs, labs and medications reviewed. She reports feeling much improved today, she denies any major complaints and specifically denies headaches, difficulty breathing or chest pain. She denies overt bleeding. She has several questions regarding her Vas-Cath as well as resumption of outpatient plasma exchange treatments. Objective Vital Signs/Intake & Output: Vital Signs 04/07/18 08:00 04/07/18 09:00 04/07/18 09:01 Temperature Pulse Rate 84 73 78 Respiratory Rate 27 H 20 26 H Blood Pressure 121/61 134/72 Pulse Oximetry 94 L 92 L 88 L 04/07/18 09:49 04/07/18 10:00 04/07/18 11:00 Temperature 98.2 F Pulse Rate 83 76 74 Respiratory Rate 16 26 H 23 Blood Pressure 134/72 125/61 124/57 L Pulse Oximetry 98 98 04/07/18 12:00 04/07/18 13:00 04/07/18 13:07 Temperature Pulse Rate 86 79 79 Respiratory Rate 29 H 29 H 31 H Blood Pressure 128/73 199/73 H 148/69 H Pulse Oximetry 97 96 95 04/07/18 14:00 04/07/18 19:15 04/07/18 20:02 Temperature 97.7 F Pulse Rate 70 85 69 Respiratory Rate 21 18 Blood Pressure 138/66 Pulse Oximetry 97 99 04/07/18 23:56 04/08/18 00:16 04/08/18 03:26 Temperature 98.1 F 97.9 F Pulse Rate 65 71 66 Respiratory Rate 16 16 Blood Pressure 115/60 104/49 L Pulse Oximetry 96 98 04/08/18 04:03 04/08/18 07:00 Temperature Pulse Rate 64 69 Respiratory Rate Blood Pressure Pulse Oximetry Intake & Output 04/07/18 04/08/18 04/08/18 18:59 06:59 18:59 Intake Total 8057 / 8057 600 / 600 Output Total 3500 / 3500 650 / 650 Balance 4557 / 4557 -50 / -50 Weight 77 kg Intake: IV 7820 / 7820 [place] 5% Inj 3,500 ML @ 0 mls/ 7000 / 7000 hr IV.SIG Q24H [facility] Rx#:[id number] Calcium Gluconate Inj 3.5 GM In 570 / 570 NS Inj 250 ML @ 142.5 mls/hr IV.SIG Q24H [facility] Rx#:[id number] NS Inj 250 ML @ 15 mls/hr IV. 250 / 250 SIG ONCE [facility] Rx#:[id number] Oral 600 / 600 Intake (Blood Product) Amt 237 / 237 Pre-Pooled Cryo Thawed 10units 0 / 0 Unit [id number] Pre-Pooled Cryo Thawed 10units 237 / 237 Unit [id number] Output: Urine 650 / 650 Plasma Exchange Amount 3500 / 3500 Other: # Voids 4 Date of Last Bowel Movement 04/06/18 04/07/18 # Bowel Movements 2 Result Diagrams: 04/08/18 06:10 04/07/18 05:45 Laboratory Results: Laboratory Results - last 24 hr 04/07/18 04/07/18 04/08/18 05:45 07:53 06:10 WBC 25.9 H RBC 2.57 L Hgb 8.9 L Hct 25.4 L MCV 98.5 MCH 34.5 H MCHC 35.0 RDW 18.6 H Plt Count 75 L D MPV 9.2 Prelim Diff (Auto) Slide review pending Neut % (Auto) 68.8 Lymph % (Auto) 24.6 [place] % (Auto) 6.5 Eos % (Auto) 0.0 Baso % (Auto) 0.1 Neut # (Auto) 17.8 H Lymph # (Auto) 6.4 H [place] # (Auto) 1.7 H Eos # (Auto) 0.0 Baso # (Auto) 0.0 WBC Differential Manual diff final Seg Neuts % (Manual) 74 H Band Neuts % (Manual) 3 Lymphocytes % (Manual) 13 Monocytes % (Manual) 9 H Metamyelocytes % (Man) 1 Abs Neuts (Manual) 18.7 H Differential Comment . Platelet Estimate Low L Platelet Morphology Normal Dimorphic RBCs Present H Basophilic Stippling Moderate H [place] Bodies Present H Keratocytes 1+ H Fibrinogen Lactate Dehydrogenase Blood Bank Comment 04/08/18 04/08/18 06:10 06:10 WBC RBC Hgb Hct MCV MCH MCHC RDW Plt Count MPV Prelim Diff (Auto) Neut % (Auto) Lymph % (Auto) [place] % (Auto) Eos % (Auto) Baso % (Auto) Neut # (Auto) Lymph # (Auto) [place] # (Auto) Eos # (Auto) Baso # (Auto) WBC Differential Seg Neuts % (Manual) Band Neuts % (Manual) Lymphocytes % (Manual) Monocytes % (Manual) Metamyelocytes % (Man) Abs Neuts (Manual) Differential Comment Platelet Estimate Platelet Morphology Dimorphic RBCs Basophilic [place]ling [place] Bodies Keratocytes Fibrinogen 55 L* Lactate Dehydrogenase 175 Blood Bank Comment Culture Results: Microbiology 04/04/18 20:35 Urine Culture - Final Clean Catch Urine >100,000 cfu/mL mixed gram positive darlene (probable contaminantes) Medications: Active Medications Generic Name Dose Route Start Last Admin Trade Name Freq PRN Reason Stop Dose Admin Ascorbic Acid 500 mg 04/05/18 09:00 04/07/18 21:23 Vitamin C PO 500 mg BID [facility]ACK[facility] Administration Calcium/Vitamin D 2 tab 04/05/18 09:00 04/07/18 09:00 [place] With D 250/125 Mg PO 2 tab DAILY [facility]ACK[facility] Administration Chlorhexidine Gluconate 3 pack 04/06/18 04:00 04/08/18 05:30 Chlorhexidine 2% Cloth TOPICAL 04/11/18 03:59 Not Given DAILY@0400 [facility] Diphenhydramine HCl 25 mg 04/05/18 17:00 04/06/18 20:25 Benadryl Inj IV.PUSH 04/11/18 16:59 25 mg UNSCH PRN Administration SEE LABEL COMMENTS Diphenhydramine HCl 25 mg 04/05/18 16:00 04/07/18 14:40 Benadryl Inj IV.PUSH 04/11/18 15:59 25 mg UNSCH PRN Administration SEE LABEL COMMENTS Famotidine 20 mg 04/05/18 09:00 04/07/18 21:24 Pepcid PO 20 mg BID JACKI Administration Folic Acid 1 mg 04/05/18 09:00 04/07/18 21:23 Folic Acid PO 1 mg BID JACKI Administration Gentamicin Sulfate 10 mg 04/05/18 17:00 04/05/18 17:51 Gentamicin Inj OTHER 04/11/18 16:59 10 mg UNSCH JACKI Administration Albumin Human 3,500 mls @ 0 mls/hr 04/05/18 17:00 04/07/18 18:19 Al[place]x 5% Inj IV.SIG 04/09/18 17:01 Infused Q24H [facility] Infusion Levothyroxine Sodium 75 mcg 04/05/18 06:00 04/08/18 05:37 Synthroid PO 75 mcg DAILY@0600 [facility] Administration Methylprednisolone Sodium Succinate 60 mg 04/06/18 21:00 04/07/18 21:23 Solumedrol Inj IV.PUSH 60 mg Q12HR [facility] Administration Pyridoxine HCl 25 mg 04/05/18 09:00 04/07/18 18:19 Vitamin B-6 PO Not Given TID [facility] Senna/Docusate Sodium 1 tab 04/05/18 09:00 04/07/18 21:17 Lorri-Colace PO Not Given BID [facility] Sodium Chloride 2 ml 04/05/18 09:00 04/07/18 21:24 Ns Flush IV.FLUSH 2 ml BID [facility] Administration Sodium Citrate 1,000 ml 04/05/18 17:00 04/07/18 14:45 Acd-A Solution EXTRACORPO 04/09/18 09:01 1,000 ml DAILY [facility]ACKI Administration Objective Remarks: GENERAL: Middle-aged female, sitting up in bed, appears to be no acute distress she has a pleasant disposition. Appears to be somewhat pale. SKIN: Warm and dry. HEAD: Normocephalic. EYES: No scleral icterus. No injection or drainage. NECK: Right-sided IJ Vas-Cath in place, supple, trachea midline. No JVD or lymphadenopathy. LYMPHATIC: No adenopathy. CARDIOVASCULAR: Regular rate and rhythm without murmurs. RESPIRATORY: Breath sounds equal bilaterally. No accessory muscle use. GASTROINTESTINAL: Abdomen soft, non-tender, nondistended. EXTREMITIES: No cyanosis, or edema. MUSCULOSKELETAL: Adequate muscle tone. NEUROLOGICAL: No obvious focal deficit. Awake, alert, and oriented x3. PSYCHIATRIC: Appropriate mood and affect; insight and judgment normal. 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 Her primary care physician ordered CBC with results coming back with very low platelets. She was directed to the emergency room. Hematology was consulted for plasmapheresis arrangement for TTP. Patient was started on Solu-Medrol IV every 8 hours in the emergency room. Recommendations: 1. Recurrent thrombotic thrombocytopenic purpura: Currently on plasma exchange treatments, today will be day 3 out of 5 planned treatments. On corticosteroids. Platelet count improving, LDH normalized. Clinically much improved. She feels her symptoms of body aches and confusion are better. Looking forward to possible discharge planning over the course of this weekend. Discharge will be contingent upon normalization of platelet counts. I would like her to have her current Vas-Cath replaced by a tunneled Vas-Cath prior to discharge. Outpatient plasma exchange treatments will need to be organized, I anticipate she will need plasma exchange treatments on Saturday, Saturday and Saturday next week and at least 2 plasma exchange treatments the following week. This will need to be coordinated with my outpatient plasma exchange/ plasmapheresis team. 2. Low fibrinogen: Likely related to plasma exchange. Status post cryoprecipitate infusion on 04/07/2018, fibrinogen level is in the low 50s again this morning. I requested an additional unit of cryoprecipitate to be transfused today. Nurse was informed. 3. Continue corticosteroids for the time being, once out of the hospital I will coordinate rituximab infusions in my clinic. She will likely also require a tapering 5 plasma exchanges in the outpatient setting as well.
[2018-04-08 08:11] LABS: Howell-Jolly Bodies Present; Lymphocytes 24 % (9-44); Monocytes 4 % (0-8); Myelocytes 2 % (0-0); Tallied Nucleated RBC 2 (0-0)
[2018-04-08 08:12] LABS: Acanthocytes Occ
[2018-04-08] MEDS: Ascorbic Acid 500 MG Tablet PO SCH ×2 (08:27→21:50)
[2018-04-08] MEDS: Folic Acid 1 MG Tablet PO SCH ×2 (08:27→21:47)
[2018-04-08] MEDS: Calcium/Vitamin D 250/125 MG Tablet PO SCH (08:27)
[2018-04-08] MEDS: Famotidine 20 MG Tablet PO SCH ×2 (08:27→21:49)
[2018-04-08] MEDS: MethylPREDNISolone Sod Succinate Inj 125 MG/2 ML Vial IV.PUSH SCH ×2 (08:27→21:48)
[2018-04-08] MEDS: Senna/Docusate Sodium 8.6/50 MG Tablet PO SCH ×2 (08:31→21:49)
[2018-04-08] MEDS ORDERED: SODIUM CHLOR 0.9% IV.SIG SCH (17:00)
[2018-04-08] MEDS ORDERED: CALCIUM GLUCONATE IV.SIG SCH (17:00)
[2018-04-08] MEDS: ALBUMIN HUMAN 5% IV.SIG SCH (17:44)
--- NOTE | 2018-04-08 18:00 | P.PNIM ---
Subjective Interval history: Patient seen today during plasma exchange. Says she is feeling all right. Denies any chest pain or shortness of breath. Denies any bleeding. Physical Exam Vital signs: Vital Signs 04/07/18 19:15 04/07/18 20:02 04/07/18 23:56 Temperature 97.7 F Pulse Rate 85 69 65 Respiratory Rate 18 Blood Pressure 138/66 Pulse Oximetry 99 04/08/18 00:16 04/08/18 03:26 04/08/18 04:03 Temperature 98.1 F 97.9 F Pulse Rate 71 66 64 Respiratory Rate 16 16 Blood Pressure 115/60 104/49 L Pulse Oximetry 96 98 04/08/18 07:00 04/08/18 08:23 04/08/18 09:33 Temperature 98.1 F 98.4 F Pulse Rate 69 77 82 Respiratory Rate 18 18 Blood Pressure 132/66 110/57 L Pulse Oximetry 100 97 04/08/18 09:55 04/08/18 12:00 Temperature 98.6 F Pulse Rate 81 78 Respiratory Rate 16 Blood Pressure 129/66 Pulse Oximetry Intake & Output 04/07/18 04/08/18 04/08/18 18:59 06:59 18:59 Intake Total 8294 / 8294 600 / 600 225 / 225 Output Total 3500 / 3500 650 / 650 Balance 4794 / 4794 -50 / -50 225 / 225 Weight 77 kg Intake: IV 7820 / 7820 [place]x 5% Inj 3,500 ML @ 0 mls/ 7000 / 7000 hr IV.SIG Q24H [facility] Rx#:[id number] Calcium Gluconate Inj 3.5 GM In 570 / 570 NS Inj 250 ML @ 142.5 mls/hr IV.SIG Q24H [facility] Rx#:[id number] NS Inj 250 ML @ 15 mls/hr IV. 250 / 250 SIG ONCE [facility] Rx#:[id number] Oral 600 / 600 Intake (Blood Product) Amt 474 / 474 225 / 225 Pre-Pooled Cryo Thawed 10units 237 / 237 Unit [id number] Pre-Pooled Cryo Thawed 10units 237 / 237 Unit [id number] Pre-Pooled Cryo Thawed 10units 225 / 225 Unit [id number] Output: Urine 650 / 650 Plasma Exchange Amount 3500 / 3500 Other: # Voids 4 Date of Last Bowel Movement 04/06/18 04/07/18 04/07/18 # Bowel Movements 2 Narrative: GENERAL: Patient sitting up in dialysis bed. Appears comfortable. SKIN: Warm and dry. HEAD: Normocephalic. EYES: No scleral icterus. No injection or drainage. NECK: Supple, trachea midline. No JVD. Right IJ catheter used for dialysis. No surrounding erythema or leakage. CARDIOVASCULAR: Regular rate and rhythm without murmurs, gallops, or rubs. RESPIRATORY: Breath sounds equal bilaterally. No accessory muscle use. GASTROINTESTINAL: Abdomen soft, non-tender, nondistended. MUSCULOSKELETAL: No cyanosis, or edema. BACK: Nontender without obvious deformity. No CVA tenderness. - Urinary Catheter Management Female External Cath placed during this visit: no Results - Labs CBC & Chem 7: 04/08/18 06:10 04/07/18 05:45 Laboratory Results - last 24 hr 04/08/18 04/08/18 04/08/18 06:10 06:10 06:10 WBC 25.9 H RBC 2.57 L Hgb 8.9 L Hct 25.4 L MCV 98.5 MCH 34.5 H MCHC 35.0 RDW 18.6 H Plt Count 75 L D MPV 9.2 Prelim Diff (Auto) Slide review pending Neut % (Auto) 68.8 Lymph % (Auto) 24.6 [place] % (Auto) 6.5 Eos % (Auto) 0.0 Baso % (Auto) 0.1 Neut # (Auto) 17.8 H Lymph # (Auto) 6.4 H [place] # (Auto) 1.7 H Eos # (Auto) 0.0 Baso # (Auto) 0.0 WBC Differential Manual diff final Seg Neuts % (Manual) 69 Band Neuts % (Manual) 1 Lymphocytes % (Manual) 24 Monocytes % (Manual) 4 Myelocytes % (Man) 2 H Abs Neuts (Manual) 18.6 H Nucleated RBCs/100 WBC 2 H Differential Comment . Platelet Estimate Low L Platelet Morphology Enlarged H [place] Bodies Present H Acanthocytes (Sp[place]) Occ H Keratocytes 1+ H Fibrinogen 55 L* Lactate Dehydrogenase 175 Blood Bank Comment 04/08/18 07:45 WBC RBC Hgb Hct MCV MCH MCHC RDW Plt Count MPV Prelim Diff (Auto) Neut % (Auto) Lymph % (Auto) [place] % (Auto) Eos % (Auto) Baso % (Auto) Neut # (Auto) Lymph # (Auto) [place] # (Auto) Eos # (Auto) Baso # (Auto) WBC Differential Seg Neuts % (Manual) Band Neuts % (Manual) Lymphocytes % (Manual) Monocytes % (Manual) Myelocytes % (Man) Abs Neuts (Manual) Nucleated RBCs/100 WBC Differential Comment Platelet Estimate Platelet Morphology [place] Bodies Acanthocytes ([place]) Keratocytes Fibrinogen Lactate Dehydrogenase Blood Bank Comment Assessment and Plan - Plan //ACUTE THROMBOCTYOPENIA due to TTP - cont steroids and plasma exchange as per hematology, = Discussed with hematology. Continue plasma exchange. //HYPOTHYROIDISM -stable. Cont synthroid. //NC ANEMIA - chronic. We will check B12. //LEUKOCYTOSIS - reactive due to solumedrol Discussed Condition With: Patient, nurse, oncology. Discharge Planning: Physical therapy consult ordered and pending. Pending oncology clearance.
[2018-04-08] MEDS: Anticoagulant Citrate Dextrose 1,000 ML Solution EXTRACORPO SCH (18:58)
[2018-04-09 06:17] LABS: Baso % (Auto) 0.1 % (0.0-2.0); Hematocrit 26.8 % (35.0-46.0); Hemoglobin 9.4 gm/dL (11.6-15.3); Lymph # (Auto) 4.3 th/mm3 (1.0-4.8); Lymph % (Auto) 17.7 % (9.0-44.0); Mean Corpuscular Hemoglobin 34.9 pg (27.0-34.0); Mean Corpuscular Volume 99.7 fL (80.0-100.0); Mono # (Auto) 1.5 th/mm3 (0.0-0.9); Neut # (Auto) 18.7 th/mm3 (1.8-7.7); Neut % (Auto) 76.2 % (16.0-70.0); Platelet Count 130 th/mm3 (150-450); Red Blood Count 2.69 mil/mm3 (4.00-5.30); Red Cell Distribution Width 18.6 % (11.6-17.2); White Blood Count 24.5 th/mm3 (4.0-11.0)
[2018-04-09] MEDS: Levothyroxine 75 MCG Tablet PO SCH (06:23)
[2018-04-09] MEDS: Chlorhexidine Gluconate 2% 1 Pack (2 Cloths) TOPICAL SCH (06:24)
[2018-04-09 06:51] LABS: Albumin 4.6 g/dL (3.4-5.0); Calcium 8.1 mg/dL (8.5-10.1); Carbon Dioxide 26.1 meq/L (21.0-32.0); Magnesium 1.9 mg/dL (1.5-2.5); Potassium 3.5 meq/L (3.5-5.1)
[2018-04-09 06:55] LABS: Phosphorus 3.5 mg/dL (2.5-4.9); Total Protein 5.7 g/dL (6.4-8.2)
[2018-04-09 07:45] LABS: Lymphocytes 19 % (9-44); Monocytes 3 % (0-8); Myelocytes 1 % (0-0); Tallied Nucleated RBC 2 (0-0)
[2018-04-09] MEDS: Famotidine 20 MG Tablet PO SCH ×2 (08:14→20:54)
[2018-04-09] MEDS: Folic Acid 1 MG Tablet PO SCH ×2 (08:14→20:55)
[2018-04-09] MEDS: Ascorbic Acid 500 MG Tablet PO SCH ×2 (08:14→20:55)
[2018-04-09] MEDS: MethylPREDNISolone Sod Succinate Inj 125 MG/2 ML Vial IV.PUSH SCH ×2 (08:14→20:56)
[2018-04-09] MEDS: Calcium/Vitamin D 250/125 MG Tablet PO SCH (08:14)
[2018-04-09] MEDS: Senna/Docusate Sodium 8.6/50 MG Tablet PO SCH ×2 (08:14→20:54)
[2018-04-09] MEDS ORDERED: Sodium Chlor 0.9% Inj 250 ML IV.SIG SCH (09:00)
--- NOTE | 2018-04-09 09:41 | P.PNIM ---
Subjective Interval history: Patient says she is feeling all right. Denies any chest pain or shortness of breath. Denies any bleeding. Physical Exam Vital signs: Vital Signs 04/08/18 09:55 04/08/18 12:00 04/08/18 18:17 Temperature 98.6 F 98 F Pulse Rate 81 78 77 Respiratory Rate 16 18 Blood Pressure 129/66 119/62 Pulse Oximetry 100 04/08/18 19:41 04/08/18 20:06 04/08/18 23:35 Temperature 98.1 F Pulse Rate 95 H 80 62 Respiratory Rate 16 Blood Pressure 124/62 Pulse Oximetry 98 04/09/18 00:00 04/09/18 03:44 04/09/18 03:55 Temperature 98.4 F 97.9 F Pulse Rate 70 78 72 Respiratory Rate 18 16 Blood Pressure 120/67 119/60 Pulse Oximetry 97 97 04/09/18 08:00 04/09/18 09:34 Temperature 98 F Pulse Rate 71 64 Respiratory Rate 18 18 Blood Pressure 114/62 110/51 L Pulse Oximetry 99 98 Intake & Output 04/08/18 04/09/18 04/09/18 18:59 06:59 18:59 Intake Total 4955 / 4955 760 / 760 0 / 0 Output Total 4600 / 4600 2126 / 2126 Balance 355 / 355 -1366 / -1366 0 / 0 Weight 77.2 kg Intake: IV 3500 / 3500 [place] 5% Inj 3,500 ML @ 0 mls/ 3500 / 3500 hr IV.SIG Q24H [facility] Rx#:[id number] Oral 1230 / 1230 760 / 760 Intake (Blood Product) Amt 225 / 225 0 / 0 Pre-Pooled Cryo Thawed 10units 225 / 225 Unit [id number] Pre-Pooled Cryo Thawed 10units 0 / 0 Unit [id number] Output: Urine 1100 / 1100 2125 / 2125 Stool 1 / 1 Plasma Exchange Amount 3500 / 3500 Other: Date of Last Bowel Movement 04/08/18 04/09/18 # Bowel Movements 2 Narrative: GENERAL: Patient sitting up bed. Appears comfortable. SKIN: Warm and dry. HEAD: Normocephalic. EYES: No scleral icterus. No injection or drainage. NECK: Supple, trachea midline. No JVD. Right IJ catheter without any surrounding erythema. CARDIOVASCULAR: Regular rate and rhythm without murmurs, gallops, or rubs. RESPIRATORY: Breath sounds equal bilaterally. No accessory muscle use. GASTROINTESTINAL: Abdomen soft, non-tender, nondistended. MUSCULOSKELETAL: No cyanosis, or edema. BACK: Nontender without obvious deformity. No CVA tenderness. - Urinary Catheter Management Female External Cath placed during this visit: no Results - Labs CBC & Chem 7: 04/09/18 05:56 04/09/18 05:56 Laboratory Results - last 24 hr 04/08/18 04/08/18 04/09/18 06:10 07:45 05:56 WBC 24.5 H RBC 2.69 L Hgb 9.4 L Hct 26.8 L MCV 99.7 MCH 34.9 H MCHC 35.0 RDW 18.6 H Plt Count 130 L D MPV 11.0 Prelim Diff (Auto) Slide review pending Neut % (Auto) 76.2 H Lymph % (Auto) 17.7 [place] % (Auto) 6.0 Eos % (Auto) 0.0 Baso % (Auto) 0.1 Neut # (Auto) 18.7 H Lymph # (Auto) 4.3 [place] # (Auto) 1.5 H Eos # (Auto) 0.0 Baso # (Auto) 0.0 WBC Differential Manual diff final Seg Neuts % (Manual) 75 H Band Neuts % (Manual) 2 Lymphocytes % (Manual) 19 Monocytes % (Manual) 3 Myelocytes % (Man) 1 H Abs Neuts (Manual) 19.1 H Nucleated RBCs/100 WBC 2 H Differential Comment . Platelet Estimate Low L Platelet Morphology Enlarged H Keratocytes 1+ H Fibrinogen Sodium Potassium Chloride Carbon Dioxide Anion Gap BUN Creatinine Estimated GFR Random Glucose Calcium Phosphorus Magnesium Total Bilirubin Direct Bilirubin Indirect Bilirubin AST ALT Alkaline Phosphatase Lactate Dehydrogenase Total Protein Albumin Vitamin B12 279 Blood Bank Comment 04/09/18 04/09/18 04/09/18 05:56 05:56 08:08 WBC RBC Hgb Hct MCV MCH MCHC RDW Plt Count MPV Prelim Diff (Auto) Neut % (Auto) Lymph % (Auto) [place] % (Auto) Eos % (Auto) Baso % (Auto) Neut # (Auto) Lymph # (Auto) [place] # (Auto) Eos # (Auto) Baso # (Auto) WBC Differential Seg Neuts % (Manual) Band Neuts % (Manual) Lymphocytes % (Manual) Monocytes % (Manual) Myelocytes % (Man) Abs Neuts (Manual) Nucleated RBCs/100 WBC Differential Comment Platelet Estimate Platelet Morphology Keratocytes Fibrinogen 65 L* Sodium 145 Potassium 3.5 Chloride 110 H Carbon Dioxide 26.1 Anion Gap 9 BUN 18 Creatinine 0.70 Estimated GFR 83 L Random Glucose 176 H Calcium 8.1 L Phosphorus 3.5 Magnesium 1.9 Total Bilirubin 0.7 Direct Bilirubin 0.2 Indirect Bilirubin 0.5 AST 17 ALT 24 Alkaline Phosphatase 18 L Lactate Dehydrogenase 147 Total Protein 5.7 L Albumin 4.6 Vitamin B12 Blood Bank Comment Assessment and Plan - Plan //ACUTE THROMBOCTYOPENIA due to TTP - cont steroids and plasma exchange as per hematology, = Management as per hematology. Appreciate assistance. Platelets 130. Much improved. //HYPOTHYROIDISM -stable. Cont synthroid. //NC ANEMIA - chronic. We will check B12. = B12 borderline low in the 270s. Will check a methylmalonic acid. //LEUKOCYTOSIS - reactive due to solumedrol Discharge Planning: Physical therapy consult ordered and pending. Pending oncology clearance.
--- NOTE | 2018-04-09 12:37 | P.PNONC ---
Subjective Interval history: Patient sitting at bedside eating lunch. Her fifth plasmapheresis has been held today, per Dr. Salazar's request. She was notified of this and is disappointed. She states she is ready to go home and would like to leave by tomorrow. She inquires when they will change out her Vas-Cath. She is aware that she will have outpatient plasmapheresis and the scheduling of this is currently in progress. Objective Vital Signs/Intake & Output: Vital Signs 04/08/18 18:17 04/08/18 19:41 04/08/18 20:06 Temperature 98 F 98.1 F Pulse Rate 77 95 H 80 Respiratory Rate 18 16 Blood Pressure 119/62 124/62 Pulse Oximetry 100 98 04/08/18 23:35 04/09/18 00:00 04/09/18 03:44 Temperature 98.4 F 97.9 F Pulse Rate 62 70 78 Respiratory Rate 18 16 Blood Pressure 120/67 119/60 Pulse Oximetry 97 97 04/09/18 03:55 04/09/18 08:00 04/09/18 09:34 Temperature 98 F Pulse Rate 72 87 64 Respiratory Rate 18 18 Blood Pressure 114/62 110/51 L Pulse Oximetry 99 98 04/09/18 11:50 Temperature Pulse Rate 78 Respiratory Rate 18 Blood Pressure 127/70 Pulse Oximetry 98 Intake & Output 04/08/18 04/09/18 04/09/18 18:59 06:59 18:59 Intake Total 4955 / 4955 760 / 760 0 / 0 Output Total 4600 / 4600 2126 / 2126 Balance 355 / 355 -1366 / -1366 0 / 0 Weight 77.2 kg Intake: IV 3500 / 3500 Alburx 5% Inj 3,500 ML @ 0 mls/ 3500 / 3500 hr IV.SIG Q24H JACKI Rx#:[id number] Oral 1230 / 1230 760 / 760 Intake (Blood Product) Amt 225 / 225 0 / 0 Pre-Pooled Cryo Thawed 10units 225 / 225 Unit [id number] Pre-Pooled Cryo Thawed 10units 0 / 0 Unit [id number] Output: Urine 1100 / 1100 2125 / 2125 Stool 1 / 1 Plasma Exchange Amount 3500 / 3500 Other: Date of Last Bowel Movement 04/08/18 04/09/18 04/09/18 # Bowel Movements 2 Result Diagrams: 04/09/18 05:56 04/09/18 05:56 Laboratory Results: Laboratory Results - last 24 hr 04/08/18 04/09/18 04/09/18 06:10 05:56 05:56 WBC 24.5 H RBC 2.69 L Hgb 9.4 L Hct 26.8 L MCV 99.7 MCH 34.9 H MCHC 35.0 RDW 18.6 H Plt Count 130 L D MPV 11.0 Prelim Diff (Auto) Slide review pending Neut % (Auto) 76.2 H Lymph % (Auto) 17.7 [place] % (Auto) 6.0 Eos % (Auto) 0.0 Baso % (Auto) 0.1 Neut # (Auto) 18.7 H Lymph # (Auto) 4.3 [place] # (Auto) 1.5 H Eos # (Auto) 0.0 Baso # (Auto) 0.0 WBC Differential Manual diff final Seg Neuts % (Manual) 75 H Band Neuts % (Manual) 2 Lymphocytes % (Manual) 19 Monocytes % (Manual) 3 Myelocytes % (Man) 1 H Abs Neuts (Manual) 19.1 H Nucleated RBCs/100 WBC 2 H Differential Comment . Platelet Estimate Low L Platelet Morphology Enlarged H Keratocytes 1+ H Fibrinogen 65 L* Sodium Potassium Chloride Carbon Dioxide Anion Gap BUN Creatinine Estimated GFR Random Glucose Calcium Phosphorus Magnesium Total Bilirubin Direct Bilirubin Indirect Bilirubin AST ALT Alkaline Phosphatase Lactate Dehydrogenase Total Protein Albumin Vitamin B12 279 Blood Bank Comment 04/09/18 04/09/18 05:56 08:08 WBC RBC Hgb Hct MCV MCH MCHC RDW Plt Count MPV Prelim Diff (Auto) Neut % (Auto) Lymph % (Auto) [place] % (Auto) Eos % (Auto) Baso % (Auto) Neut # (Auto) Lymph # (Auto) [place] # (Auto) Eos # (Auto) Baso # (Auto) WBC Differential Seg Neuts % (Manual) Band Neuts % (Manual) Lymphocytes % (Manual) Monocytes % (Manual) Myelocytes % (Man) Abs Neuts (Manual) Nucleated RBCs/100 WBC Differential Comment Platelet Estimate Platelet Morphology Keratocytes Fibrinogen Sodium 145 Potassium 3.5 Chloride 110 H Carbon Dioxide 26.1 Anion Gap 9 BUN 18 Creatinine 0.70 Estimated GFR 83 L Random Glucose 176 H Calcium 8.1 L Phosphorus 3.5 Magnesium 1.9 Total Bilirubin 0.7 Direct Bilirubin 0.2 Indirect Bilirubin 0.5 AST 17 ALT 24 Alkaline Phosphatase 18 L Lactate Dehydrogenase 147 Total Protein 5.7 L Albumin 4.6 Vitamin B12 Blood Bank Comment Culture Results: Microbiology 04/04/18 20:35 Urine Culture - Final Clean Catch Urine >100,000 cfu/mL mixed gram positive darlene (probable contaminantes) Medications: Active Medications Generic Name Dose Route Start Last Admin Trade Name Freq PRN Reason Stop Dose Admin Ascorbic Acid 500 mg 04/05/18 09:00 04/09/18 08:14 Vitamin C PO 500 mg BID JACKI Administration Calcium/Vitamin D 2 tab 04/05/18 09:00 04/09/18 08:14 Oscal With D 250/125 Mg PO 2 tab DAILY JACKI Administration Chlorhexidine Gluconate 3 pack 04/06/18 04:00 04/09/18 06:24 Chlorhexidine 2% Cloth TOPICAL 04/11/18 03:59 Not Given DAILY@0400 JACKI Diphenhydramine HCl 25 mg 04/05/18 17:00 04/06/18 20:25 Benadryl Inj IV.PUSH 04/11/18 16:59 25 mg UNSCH PRN Administration SEE LABEL COMMENTS Diphenhydramine HCl 25 mg 04/05/18 16:00 04/08/18 17:45 Benadryl Inj IV.PUSH 04/11/18 15:59 25 mg UNSCH PRN Administration SEE LABEL COMMENTS Famotidine 20 mg 04/05/18 09:00 04/09/18 08:14 Pepcid PO 20 mg BID JACKI Administration Folic Acid 1 mg 04/05/18 09:00 04/09/18 08:14 Folic Acid PO 1 mg BID JACKI Administration Gentamicin Sulfate 10 mg 04/05/18 17:00 04/08/18 17:45 Gentamicin Inj OTHER 04/11/18 16:59 10 mg UNSCH JACKI Administration Albumin Human 3,500 mls @ 0 mls/hr 04/05/18 17:00 04/08/18 18:00 Alburx 5% Inj IV.SIG 04/09/18 17:01 Infused Q24H JACKI Infusion Sodium Chloride 250 mls @ 15 mls/hr 04/09/18 09:00 04/09/18 10:24 Ns Inj IV.SIG 04/10/18 01:39 15 mls/hr ONCE JACKI Administration Levothyroxine Sodium 75 mcg 04/05/18 06:00 04/09/18 06:23 Synthroid PO 75 mcg DAILY@0600 JACKI Administration Methylprednisolone Sodium Succinate 60 mg 04/06/18 21:00 04/09/18 08:14 Solumedrol Inj IV.PUSH 60 mg Q12HR JACKI Administration Pyridoxine HCl 25 mg 04/05/18 09:00 04/09/18 08:14 Vitamin B-6 PO 25 mg TID JACKI Administration Senna/Docusate Sodium 1 tab 04/05/18 09:00 04/09/18 08:14 Lorri-Colace PO 1 tab BID JACKI Administration Sodium Chloride 2 ml 04/05/18 09:00 04/09/18 08:15 Ns Flush IV.FLUSH 2 ml BID JACKI Administration Objective Remarks: GENERAL: Well-nourished, well-developed female patient, no acute distress. SKIN: Warm and dry. Small ecchymosis to bilateral upper extremities. HEAD: Normocephalic. EYES: No scleral icterus. No injection or drainage. NECK: Supple, trachea midline. No JVD or lymphadenopathy.Vas-Cath to right subclavian. CARDIOVASCULAR: Regular rate and rhythm without murmurs. RESPIRATORY: Posterior breath sounds clear, equal bilaterally. No accessory muscle use. GASTROINTESTINAL: Abdomen soft, non-tender, nondistended. EXTREMITIES: No cyanosis, or edema. MUSCULOSKELETAL: Adequate muscle tone. NEUROLOGICAL: No obvious focal deficit. Awake, alert, and oriented x3. PSYCHIATRIC: Appropriate mood and affect; insight and judgment normal. 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 Her primary care physician ordered CBC with results coming back with very low platelets. She was directed to the emergency room. Hematology was consulted for plasmapheresis arrangement for TTP. Patient was started on Solu-Medrol IV every 8 hours in the emergency room. Recommendations: 1. Recurrent thrombotic thrombocytopenic purpura: Currently on plasma exchange treatments, 5 planned treatments. On corticosteroids. Platelet count improving , LDH normalized. 2. Requested IR replace current Vas-Cath with tunneled Vas-Cath. 3. Outpatient plasma exchange treatments is currently being organized. Anticipate plasma exchange treatments on Saturday, Saturday and Greg next week and at least 2 plasma exchange treatments the following week. 4. Low fibrinogen: Likely related to plasma exchange. Status post cryoprecipitate infusion daily 04/06-04/09. Fibrinogen level today is 65. She will receive cryoprecipitate today. 5. Continue corticosteroids, once discharged Dr. Salazar will coordinate rituximab infusions in the outpatient clinic.
[2018-04-09] MEDS ORDERED: Vancomycin Inj 1,000 MG in Sodium Chlor 0.9% Inj 250 ML IV.SIG SCH (16:00)
[2018-04-09] MEDS ORDERED: ceFAZolin 2 GM Premix Inj 2 GM/50 ML PIGGYBACK IV.SIG SCH (16:00)
[2018-04-10] MEDS: Chlorhexidine Gluconate 2% 1 Pack (2 Cloths) TOPICAL SCH (03:09)
[2018-04-10] MEDS: Levothyroxine 75 MCG Tablet PO SCH (05:15)
[2018-04-10 08:00] LABS: Baso % (Auto) 0.1 % (0.0-2.0); Hematocrit 29.1 % (35.0-46.0); Hemoglobin 9.8 gm/dL (11.6-15.3); Lymph # (Auto) 3.5 th/mm3 (1.0-4.8); Lymph % (Auto) 14.6 % (9.0-44.0); Mean Corpuscular HGB Conc 33.8 % (32.0-36.0); Mean Corpuscular Hemoglobin 34.3 pg (27.0-34.0); Mean Corpuscular Volume 101.5 fL (80.0-100.0); Mean Platelet Volume 10.8 fL (7.0-11.0); Mono # (Auto) 2.1 th/mm3 (0.0-0.9); Mono % (Auto) 8.8 % (0.0-8.0); Neut # (Auto) 18.5 th/mm3 (1.8-7.7); Neut % (Auto) 76.5 % (16.0-70.0); Platelet Count 183 th/mm3 (150-450); Red Blood Count 2.87 mil/mm3 (4.00-5.30); Red Cell Distribution Width 18.3 % (11.6-17.2); White Blood Count 24.2 th/mm3 (4.0-11.0)
--- NOTE | 2018-04-10 08:06 | P.PNIM ---
Subjective Interval history: Patient says she is feeling all right. She is eager to go home. Denies any chest pain or shortness of breath. Denies nausea or vomiting. Physical Exam Vital signs: Vital Signs 04/09/18 09:34 04/09/18 11:50 04/09/18 16:00 Temperature 98 F 97.9 F Pulse Rate 64 78 70 Respiratory Rate 18 18 16 Blood Pressure 110/51 L 127/70 117/64 Pulse Oximetry 98 98 98 04/09/18 20:00 04/10/18 00:00 04/10/18 04:00 Temperature 97.6 F 98 F 97.4 F L Pulse Rate 76 70 65 Respiratory Rate 16 15 14 Blood Pressure 118/56 L 109/55 L 108/60 Pulse Oximetry 95 98 98 Intake & Output 04/09/18 04/10/18 04/10/18 18:59 06:59 18:59 Intake Total 1260 / 1260 Balance 1260 / 1260 Weight 77 kg Intake: Oral 1260 / 1260 Intake (Blood Product) Amt 0 / 0 Pre-Pooled Cryo Thawed 10units 0 / 0 Unit [id number] Other: # Voids 8 Date of Last Bowel Movement 04/09/18 04/09/18 # Bowel Movements 4 Narrative: GENERAL: Patient sitting up bed. Appears comfortable. Exam unchanged. SKIN: Warm and dry. HEAD: Normocephalic. EYES: No scleral icterus. No injection or drainage. NECK: Supple, trachea midline. No JVD. Right IJ catheter without any surrounding erythema. CARDIOVASCULAR: Regular rate and rhythm without murmurs, gallops, or rubs. RESPIRATORY: Breath sounds equal bilaterally. No accessory muscle use. GASTROINTESTINAL: Abdomen soft, non-tender, nondistended. MUSCULOSKELETAL: No cyanosis, or edema. BACK: Nontender without obvious deformity. No CVA tenderness. - Urinary Catheter Management Female External Cath placed during this visit: no Results - Labs CBC & Chem 7: 04/10/18 07:14 04/09/18 05:56 Laboratory Results - last 24 hr 04/09/18 04/10/18 08:08 07:14 WBC 24.2 H RBC 2.87 L Hgb 9.8 L Hct 29.1 L MCV 101.5 H MCH 34.3 H MCHC 33.8 RDW 18.3 H Plt Count 183 D MPV 10.8 Prelim Diff (Auto) Slide review pending Neut % (Auto) 76.5 H Lymph % (Auto) 14.6 [place] % (Auto) 8.8 H Eos % (Auto) 0.0 Baso % (Auto) 0.1 Neut # (Auto) 18.5 H Lymph # (Auto) 3.5 [place] # (Auto) 2.1 H Eos # (Auto) 0.0 Baso # (Auto) 0.0 Differential Comment . Blood Bank Comment Assessment and Plan - Plan //ACUTE THROMBOCTYOPENIA due to TTP - cont steroids and plasma exchange as per hematology, = Management as per hematology. Appreciate assistance. Platelets 130. Much improved. = 04/10. Platelets in the 180s. Management as per hematology. //HYPOTHYROIDISM -stable. Cont synthroid. //NC ANEMIA - chronic. We will check B12. = B12 borderline low in the 270s. Will check a methylmalonic acid. = Methylmalonic acid pending. //LEUKOCYTOSIS -stable. Signs of infection. Reactive due to solumedrol Discharge Planning: Physical therapy recommends home with no PT Pending oncology clearance.
[2018-04-10] MEDS: Calcium/Vitamin D 250/125 MG Tablet PO SCH (08:30)
[2018-04-10] MEDS: Folic Acid 1 MG Tablet PO SCH ×2 (08:30→21:44)
[2018-04-10] MEDS: Ascorbic Acid 500 MG Tablet PO SCH ×2 (08:30→21:45)
[2018-04-10] MEDS: MethylPREDNISolone Sod Succinate Inj 125 MG/2 ML Vial IV.PUSH SCH ×2 (08:30→21:45)
[2018-04-10] MEDS: Famotidine 20 MG Tablet PO SCH ×2 (08:31→21:44)
[2018-04-10 08:32] LABS: Alanine Aminotransferase 38 U/L (10-53); Albumin 4.6 g/dL (3.4-5.0); Anion Gap 7 meq/L (5-15); Aspartate Aminotransferase 24 U/L (15-37); Blood Urea Nitrogen 21 mg/dL (7-18); Calcium 8.4 mg/dL (8.5-10.1); Carbon Dioxide 28.9 meq/L (21.0-32.0); Chloride 108 meq/L (98-107); Glomerular Filtration Rate 83 mL/min (>89); Glucose,Random 140 mg/dL (74-106); Potassium 3.6 meq/L (3.5-5.1); Sodium 144 meq/L (136-145)
[2018-04-10] MEDS: Senna/Docusate Sodium 8.6/50 MG Tablet PO SCH ×2 (08:32→21:44)
[2018-04-10 08:35] LABS: Alkaline Phosphatase 30 U/L (45-117); Total Protein 6.2 g/dL (6.4-8.2)
--- NOTE | 2018-04-10 08:59 | P.PNONC ---
Subjective Interval history: Patient seen and examined, vital signs, labs medications reviewed. Plasma exchange treatment records reviewed. Today will be plasma exchange #5. She was not treated with plasma exchange yesterday. She reports feeling excellent and tells me she feels well enough to go home. Patient will be undergoing conversion of her Vas-Cath to a permacath this morning. Following which she will undergo plasma exchange treatment. Objective Vital Signs/Intake & Output: Vital Signs 04/09/18 09:34 04/09/18 11:50 04/09/18 16:00 Temperature 98 F 97.9 F Pulse Rate 64 78 70 Respiratory Rate 18 18 16 Blood Pressure 110/51 L 127/70 117/64 Pulse Oximetry 98 98 98 04/09/18 20:00 04/10/18 00:00 04/10/18 04:00 Temperature 97.6 F 98 F 97.4 F L Pulse Rate 76 70 65 Respiratory Rate 16 15 14 Blood Pressure 118/56 L 109/55 L 108/60 Pulse Oximetry 95 98 98 04/10/18 08:00 Temperature 97.7 F Pulse Rate 63 Respiratory Rate 16 Blood Pressure 129/67 Pulse Oximetry 99 Intake & Output 04/09/18 04/10/18 04/10/18 18:59 06:59 18:59 Intake Total 1260 / 1260 Balance 1260 / 1260 Weight 77 kg Intake: Oral 1260 / 1260 Intake (Blood Product) Amt 0 / 0 Pre-Pooled Cryo Thawed 10units 0 / 0 Unit [id number] Other: # Voids 8 Date of Last Bowel Movement 04/09/18 04/09/18 04/10/18 # Bowel Movements 4 1 Result Diagrams: 04/10/18 07:14 04/10/18 07:14 Laboratory Results: Laboratory Results - last 24 hr 04/09/18 04/10/18 04/10/18 08:08 07:14 07:14 WBC 24.2 H RBC 2.87 L Hgb 9.8 L Hct 29.1 L MCV 101.5 H MCH 34.3 H MCHC 33.8 RDW 18.3 H Plt Count 183 D MPV 10.8 Prelim Diff (Auto) Slide review pending Neut % (Auto) 76.5 H Lymph % (Auto) 14.6 [place] % (Auto) 8.8 H Eos % (Auto) 0.0 Baso % (Auto) 0.1 Neut # (Auto) 18.5 H Lymph # (Auto) 3.5 [place] # (Auto) 2.1 H Eos # (Auto) 0.0 Baso # (Auto) 0.0 Differential Comment . Fibrinogen 137 L Sodium Potassium Chloride Carbon Dioxide Anion Gap BUN Creatinine Estimated GFR Random Glucose Calcium Total Bilirubin AST ALT Alkaline Phosphatase Total Protein Albumin Blood Bank Comment 04/10/18 07:14 WBC RBC Hgb Hct MCV MCH MCHC RDW Plt Count MPV Prelim Diff (Auto) Neut % (Auto) Lymph % (Auto) [place] % (Auto) Eos % (Auto) Baso % (Auto) Neut # (Auto) Lymph # (Auto) [place] # (Auto) Eos # (Auto) Baso # (Auto) Differential Comment Fibrinogen Sodium 144 Potassium 3.6 Chloride 108 H Carbon Dioxide 28.9 Anion Gap 7 BUN 21 H Creatinine 0.70 Estimated GFR 83 L Random Glucose 140 H Calcium 8.4 L Total Bilirubin 0.5 AST 24 ALT 38 Alkaline Phosphatase 30 L Total Protein 6.2 L Albumin 4.6 Blood Bank Comment Medications: Active Medications Generic Name Dose Route Start Last Admin Trade Name Freq PRN Reason Stop Dose Admin Ascorbic Acid 500 mg 04/05/18 09:00 04/10/18 08:30 Vitamin C PO 500 mg BID JACKI Administration Calcium/Vitamin D 2 tab 04/05/18 09:00 04/10/18 08:30 Oscal With D 250/125 Mg PO 2 tab DAILY JACKI Administration Chlorhexidine Gluconate 3 pack 04/06/18 04:00 04/10/18 03:09 Chlorhexidine 2% Cloth TOPICAL 04/11/18 03:59 Not Given DAILY@0400 [facility] Diphenhydramine HCl 25 mg 04/05/18 17:00 04/06/18 20:25 Benadryl Inj IV.PUSH 04/11/18 16:59 25 mg UNSCH PRN Administration SEE LABEL COMMENTS Diphenhydramine HCl 25 mg 04/05/18 16:00 04/08/18 17:45 Benadryl Inj IV.PUSH 04/11/18 15:59 25 mg UNSCH PRN Administration SEE LABEL COMMENTS Famotidine 20 mg 04/05/18 09:00 04/10/18 08:31 Pepcid PO 20 mg BID JACKI Administration Folic Acid 1 mg 04/05/18 09:00 04/10/18 08:30 Folic Acid PO 1 mg BID JACKI Administration Gentamicin Sulfate 10 mg 04/05/18 17:00 04/08/18 17:45 Gentamicin Inj OTHER 04/11/18 16:59 10 mg UNSCH JACKI Administration Levothyroxine Sodium 75 mcg 04/05/18 06:00 04/10/18 05:15 Synthroid PO 75 mcg DAILY@0600 JACKI Administration Methylprednisolone Sodium Succinate 60 mg 04/06/18 21:00 04/10/18 08:30 Solumedrol Inj IV.PUSH 60 mg Q12HR JACKI Administration Pyridoxine HCl 25 mg 04/05/18 09:00 04/10/18 08:30 Vitamin B-6 PO 25 mg TID JACKI Administration Senna/Docusate Sodium 1 tab 04/05/18 09:00 04/10/18 08:32 Lorri-Colace PO Not Given BID JACKI Sodium Chloride 2 ml 04/05/18 09:00 04/10/18 08:31 Ns Flush IV.FLUSH 2 ml BID JACKI Administration Objective Remarks: GENERAL: Well-nourished, well-developed female patient, no acute distress. SKIN: Warm and dry. Small ecchymosis to bilateral upper extremities. HEAD: Normocephalic. EYES: No scleral icterus. No injection or drainage. NECK: Supple, trachea midline. No JVD or lymphadenopathy.Vas-Cath to right subclavian. CARDIOVASCULAR: Regular rate and rhythm without murmurs. RESPIRATORY: Posterior breath sounds clear, equal bilaterally. No accessory muscle use. GASTROINTESTINAL: Abdomen soft, non-tender, nondistended. EXTREMITIES: No cyanosis, or edema. MUSCULOSKELETAL: Adequate muscle tone. NEUROLOGICAL: No obvious focal deficit. Awake, alert, and oriented x3. PSYCHIATRIC: Appropriate mood and affect; insight and judgment normal. 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 Her primary care physician ordered CBC with results coming back with very low platelets. She was directed to the emergency room. Hematology was consulted for plasmapheresis arrangement for TTP. Patient was started on Solu-Medrol IV every 8 hours in the emergency room. Recommendations: 1. Recurrent thrombotic thrombocytopenic purpura: Currently on plasma exchange treatments, 5 planned treatments. On corticosteroids. Platelet count improving , LDH normalized. Clinically she is doing very well. 2. Requested IR replace current Vas-Cath with tunneled Vas-Cath today. 3. Outpatient plasma exchange treatments are being organized, I would like her to receive plasma exchange treatments on 2 occasions next week, it would likely be that plasma exchange treatments will be performed on 04/16 and 04/18 next week. Followed by 04/21/2018, 04/23/18 and 04/25/18 the week following. I would like to initiate the process of rituximab infusions in the outpatient setting. I would like her to be done with plasma exchange treatments before we start Rituxan. 4. Low fibrinogen: Likely related to plasma exchange. Status post cryoprecipitate infusion daily 04/06-04/09. Fibrinogen level today is 65. She will receive cryoprecipitate today. 5. Continue corticosteroids, I would advise decreasing prednisone to 60 mg once daily at time of discharge. Disposition: She is clear for discharge from a hematologic standpoint after her fifth plasma exchange treatment and after she has her permacath placed.
[2018-04-10 09:06] LABS: Howell-Jolly Bodies Present; Lymphocytes 15 % (9-44); Metamyelocytes 1 % (0-1); Monocytes 9 % (0-8); Myelocytes 2 % (0-0); Promyelocyte 1 % (0-0); Tallied Nucleated RBC 1 (0-0)
[2018-04-10 09:07] LABS: Pappenheimer Bodies Present
[2018-04-10 09:08] LABS: Platelet Estimate Normal (Normal)
[2018-04-10] MEDS ORDERED: *Heparin 10,000 UNITS/10 ML Vial Periprocedural ONLY ONE (09:46)
[2018-04-10] MEDS ORDERED: Lidocaine 1%/Epinephrine 1:100,000 Inj 30 ML Vial ONE (09:46)
[2018-04-10] MEDS ORDERED: fentaNYL Citrate Inj 250 MCG/5 ML Ampul ONE (09:51)
--- NOTE | 2018-04-10 10:50 | P.RAD ---
Post Procedure Progress Note - Procedure Information Procedure Date: 04/10/18 Supervising Radiologist: MARY ANN Rich Assisting Physician: Oscar Mcknight Estimated blood loss (mL): 1 Anesthesia: Local, Conscious Sedation - Plan of Activity Patient to Unit: Nursing Unit Patient Condition: Good Additional Comments: A 15 Fr, 19 cm, DOUBLE LUMEN CATHETER WAS SUCCESSFULLY PLACED WITHOUT ANY DIFFICULTY OR COMPLICATIONS. PATIENT TOLERATED THE PROCEDURE WELL. See PACS Report for procedural detail/treatment.
--- NOTE | 2018-04-10 13:06 | IR ---
EXAM DATE: 04/10/2018 11:19 AM EST AGE/SEX: 67 years / Female INDICATIONS: Patient presents with history of Thrombotic Thrombocytopenic Purpura with Temporary Margarito tral Venous catheter in place in need for a Tunneled dialysis catheter placement. CLINICAL DATA: This is the patient's initial encounter. Patient reports that signs and symptoms have been present for 4 - 6 days and indicates a pain score of 0/10. MEDICAL/SURGICAL HISTORY: . Polymyalgia Rheumatic, TTP. Hysterectomy. Splenectomy. Tonsillec janelle. COMPARISON: No prior exams available for comparison. FLUORO TIME (min): 1.0 IMAGE SERIES: 1 RADIATION DOSE: 12.7mGY ACCESS SITE: Right internal jugular vein SEDATION TIME (min): 30 MEDICATION(S): 3 mg midazolam (Versed) IV 150 mcg fentanyl (Sublimaze) IV DEVICE(S): 15 Fr x 19 cm Ward double lumen . . PROCEDURE: 1. Ultrasound-guided venipuncture. 2. PermaCath placement. 3. Conscious sedation with continuous EKG and oximetry monitoring. The risks, benefits and alternatives to the procedure were explained and verbal and written consent w as obtained. The site was prepped in sterile fashion. Full sterile technique was used, including ca p, mask, sterile gloves and gown and a large sterile sheet. Hand hygiene and 2% chlorhexidine and/or betadine/alcohol prep was utilized per protocol for cutaneous antisepsis. Sterile gel and sterile p robe cover were utilized for ultrasound guidance. The skin and subcutaneous tissues were infiltrated with local anesthetic solution. With ultrasound and fluoroscopic guidance a dermatotomy was created over the prescribed vein. A micr opuncture set was used to access the targeted vein and serial dilatation was performed to accept the prescribed length catheter. A subcutaneous tunnel was created in a retrograde fashion the catheter w as pulled through the tunnel. The catheter was flushed and assembled and locked with heparin. The c atheter was sutured in place. Conscious sedation was performed with the prescribed dosages and duration as above in the presence of an independent trained radiology nurse to assist in the monitoring of the patient. EKG and oximetry remained stable throughout the procedure. The patient tolerated the procedure well and there were n o complications. The patient was sent to post anesthesia recovery in stable condition. CONCLUSION: 1. Uncomplicated PermaCath placement as above. Electronically signed by: Oscar Mcknight MD Board Certified Radiologist 04/10/2018 1:04 PM [facility]
[2018-04-10] MEDS ORDERED: Anticoagulant Citrate Dextrose 1,000 ML Solution EXTRACORPO ONE (16:00)
[2018-04-10] MEDS ORDERED: SODIUM CHLOR 0.9% IV.SIG ONE (16:00)
[2018-04-10] MEDS ORDERED: ALBUMIN HUMAN 5% IV.SIG ONE (16:00)
[2018-04-10] MEDS ORDERED: CALCIUM GLUCONATE IV.SIG ONE (16:00)
[2018-04-10] MEDS: ALBUMIN HUMAN 5% IV.SIG SCH (17:12)
[2018-04-10] MEDS: Acetaminophen 325 MG Tablet PO PRN (23:33)
[2018-04-11] MEDS ORDERED: Silver Nitrate/Potassium Nitrate Applicator Sticks TOPICAL ONE ×2 (01:01→01:25)
[2018-04-11] MEDS ORDERED: Morphine Inj 4 MG/ML Vial IV.PUSH ONE (01:27)
[2018-04-11] MEDS ORDERED: Morphine Sulfate Inj 2 MG/ML Vial ONE (01:29)
--- NOTE | 2018-04-11 01:34 | P.EN ---
Patient had vas cath placed today. It appears an incision was made above the vas cath and a steri strip was applied. During the night the steri strip became saturated with blood, pressure was applied but bleeding could not be stopped. Silver nitrate was used to cauterize the bleeding and a dry dressing was applied. Patient tolerated procedure well.
[2018-04-11] MEDS: Acetaminophen 325 MG Tablet PO PRN (04:56)
[2018-04-11] MEDS: Levothyroxine 75 MCG Tablet PO SCH (05:00)
[2018-04-11] MEDS: MethylPREDNISolone Sod Succinate Inj 125 MG/2 ML Vial IV.PUSH SCH ×2 (09:12→20:48)
[2018-04-11] MEDS: Famotidine 20 MG Tablet PO SCH ×2 (09:12→20:48)
[2018-04-11] MEDS: Calcium/Vitamin D 250/125 MG Tablet PO SCH (09:12)
[2018-04-11] MEDS: Ascorbic Acid 500 MG Tablet PO SCH ×2 (09:12→20:48)
[2018-04-11] MEDS: Folic Acid 1 MG Tablet PO SCH ×2 (09:15→20:48)
[2018-04-11] MEDS: Senna/Docusate Sodium 8.6/50 MG Tablet PO SCH ×2 (09:17→20:49)
[2018-04-11 09:53] LABS: Baso % (Auto) 0.1 % (0.0-2.0); Hematocrit 28.1 % (35.0-46.0); Hemoglobin 9.6 gm/dL (11.6-15.3); Lymph # (Auto) 3.1 th/mm3 (1.0-4.8); Lymph % (Auto) 13.2 % (9.0-44.0); Mean Corpuscular HGB Conc 34.1 % (32.0-36.0); Mean Corpuscular Hemoglobin 35.2 pg (27.0-34.0); Mean Corpuscular Volume 103.2 fL (80.0-100.0); Mean Platelet Volume 11.3 fL (7.0-11.0); Mono # (Auto) 2.1 th/mm3 (0.0-0.9); Mono % (Auto) 9.1 % (0.0-8.0); Neut # (Auto) 18.2 th/mm3 (1.8-7.7); Neut % (Auto) 77.6 % (16.0-70.0); Platelet Count 203 th/mm3 (150-450); Red Blood Count 2.72 mil/mm3 (4.00-5.30); Red Cell Distribution Width 18.8 % (11.6-17.2); White Blood Count 23.5 th/mm3 (4.0-11.0)
[2018-04-11 10:33] LABS: Lymphocytes 12 % (9-44); Monocytes 7 % (0-8); Myelocytes 1 % (0-0); Tallied Nucleated RBC 5 (0-0)
[2018-04-11 10:34] LABS: Howell-Jolly Bodies Present; Platelet Estimate Normal (Normal)
[2018-04-11 10:35] LABS: Pappenheimer Bodies Present
[2018-04-11] MEDS ORDERED: Sodium Chlor 0.9% Inj 250 ML IV.SIG SCH (11:00)
--- NOTE | 2018-04-11 13:25 | P.PNIM ---
Subjective Interval history: Patient says she is feeling right. She says she was a little anxious last night due to bleeding from Vas-Cath site. Reviewed notes from nursing as well as hospitalist team. Hospitalist provider saw the patient overnight and controlled bleeding from Vas-Cath site. Physical Exam Vital signs: Vital Signs 04/10/18 16:00 04/10/18 20:00 04/11/18 00:00 Temperature 97.4 F L 98 F 97.6 F Pulse Rate 63 71 80 Respiratory Rate 14 16 15 Blood Pressure 116/62 118/53 L 137/75 Pulse Oximetry 98 98 97 04/11/18 04:00 04/11/18 08:00 04/11/18 12:00 Temperature 97.5 F L 97.6 F 98.8 F Pulse Rate 70 80 Respiratory Rate 15 20 Blood Pressure 142/70 H 137/66 Pulse Oximetry 100 96 Intake & Output 04/10/18 04/11/18 04/11/18 18:59 06:59 18:59 Intake Total 4085 / 4085 480 / 480 Output Total 1100 / 1100 Balance 4085 / 4085 -620 / -620 Weight 77 kg Intake: IV 4085 / 4085 Calcium Gluconate Inj 3.5 GM In 285 / 285 NS Inj 250 ML @ 142.5 mls/hr IV.SIG ONCE ONE Rx#:[id number] Vancomycin Inj 1,000 MG In NS 250 / 250 Inj 250 ML @ 250 mls/hr IV.SIG EQUIPMENT TESTER [facility] Rx#:[id number] Ancef 2 GM Premix Inj 2 gm In 50 / 50 50 ml @ 100 mls/hr IV.SIG EQUIPMENT TESTER [facility] Rx#:[id number] Oral 480 / 480 Output: Urine 1100 / 1100 Other: # Voids 5 Date of Last Bowel Movement 04/10/18 04/10/18 # Bowel Movements 1 Narrative: GENERAL: Patient sitting up bed. Appears comfortable. Exam unchanged. SKIN: Warm and dry. HEAD: Normocephalic. EYES: No scleral icterus. No injection or drainage. NECK: Supple, trachea midline. No JVD. Right IJ catheter without any surrounding erythema. CARDIOVASCULAR: Regular rate and rhythm without murmurs, gallops, or rubs. RESPIRATORY: Breath sounds equal bilaterally. No accessory muscle use. GASTROINTESTINAL: Abdomen soft, non-tender, nondistended. MUSCULOSKELETAL: No cyanosis, or edema. BACK: Nontender without obvious deformity. No CVA tenderness. - Urinary Catheter Management Female External Cath placed during this visit: no Results - Labs CBC & Chem 7: 04/11/18 08:45 04/10/18 07:14 Laboratory Results - last 24 hr 04/11/18 04/11/18 04/11/18 08:45 10:33 11:42 WBC 23.5 H RBC 2.72 L Hgb 9.6 L Hct 28.1 L MCV 103.2 H MCH 35.2 H MCHC 34.1 RDW 18.8 H Plt Count 203 MPV 11.3 H Prelim Diff (Auto) Slide review pending Neut % (Auto) 77.6 H Lymph % (Auto) 13.2 [place] % (Auto) 9.1 H Eos % (Auto) 0.0 Baso % (Auto) 0.1 Neut # (Auto) 18.2 H Lymph # (Auto) 3.1 [place] # (Auto) 2.1 H Eos # (Auto) 0.0 Baso # (Auto) 0.0 WBC Differential Manual diff final Seg Neuts % (Manual) 80 H Lymphocytes % (Manual) 12 Monocytes % (Manual) 7 Myelocytes % (Man) 1 H Abs Neuts (Manual) 19.0 H Nucleated RBCs/100 WBC 5 H Differential Comment . Platelet Estimate Normal Platelet Morphology Enlarged H Pappenheimer Bodies Present H Merlos-[place] Bodies Present H Keratocytes 2+ H Fibrinogen 80 L* Blood Bank Comment Assessment and Plan - Plan //ACUTE THROMBOCTYOPENIA due to TTP - cont steroids and plasma exchange as per hematology, = Management as per hematology. Appreciate assistance. Platelets 130. Much improved. = 04/10. Platelets in the 180s. Management as per hematology. = 04/11. Plates 203. Fibrinogen 80. Patient with bleeding from old Vas-Cath site last night stabilized with pressure. Sent to IR today\ //Acute bleed from right neck Vas-Cath site. = Please see recurrence note from Samra kinney overnight. Patient has been sent to IR and this has been stabilized. Fibrinogen replaced. Discussed with oncology. Oncology agrees with monitoring patient overnight. //HYPOTHYROIDISM -stable. Cont synthroid. //NC ANEMIA - chronic. We will check B12. = B12 borderline low in the 270s. Will check methylmalonic acid. = Methylmalonic acid pending. //LEUKOCYTOSIS -stable. no Signs of infection. Reactive due to solumedrol Discussed Condition With: Patient, nurse, family at bedside. Discharge Planning: Physical therapy recommends home with no PT = Held discharge on 04/11 due to bleeding from right chest old Vas-Cath site ( have been removed on 04/10, blood in middle of night. = 04/11. The discussed with Dr. Salazar, who agrees with monitoring patient overnight and likely discharge 04/11 in a.m. Close follow-up with oncology as outpatient.
[2018-04-12] MEDS: Levothyroxine 75 MCG Tablet PO SCH (05:08)
[2018-04-12 09:23] LABS: Baso % (Auto) 0.1 % (0.0-2.0); Hematocrit 28.2 % (35.0-46.0); Hemoglobin 9.8 gm/dL (11.6-15.3); Lymph # (Auto) 2.1 th/mm3 (1.0-4.8); Mean Corpuscular HGB Conc 34.7 % (32.0-36.0); Mean Corpuscular Hemoglobin 35.8 pg (27.0-34.0); Mean Corpuscular Volume 103.1 fL (80.0-100.0); Mean Platelet Volume 11.1 fL (7.0-11.0); Mono # (Auto) 1.9 th/mm3 (0.0-0.9); Neut # (Auto) 16.7 th/mm3 (1.8-7.7); Neut % (Auto) 80.9 % (16.0-70.0); Platelet Count 243 th/mm3 (150-450); Red Blood Count 2.74 mil/mm3 (4.00-5.30); Red Cell Distribution Width 18.5 % (11.6-17.2); White Blood Count 20.6 th/mm3 (4.0-11.0)
[2018-04-12] MEDS: Famotidine 20 MG Tablet PO SCH (09:23)
[2018-04-12] MEDS: MethylPREDNISolone Sod Succinate Inj 125 MG/2 ML Vial IV.PUSH SCH (09:23)
[2018-04-12] MEDS: Folic Acid 1 MG Tablet PO SCH (09:23)
[2018-04-12] MEDS: Ascorbic Acid 500 MG Tablet PO SCH (09:23)
[2018-04-12] MEDS: Calcium/Vitamin D 250/125 MG Tablet PO SCH (09:23)
--- NOTE | 2018-04-12 09:28 | P.PNONC ---
Subjective Interval history: Patient sitting up on bedside, her daughter is present. She has no complaints at this time. She denies any further bleeding from her Vas-Cath. She is inquiring if she will be discharged home today. She has follow-up in the outpatient clinic for plasmapheresis next Saturday. Objective Vital Signs/Intake & Output: Vital Signs 04/11/18 12:00 04/11/18 13:45 04/11/18 20:00 Temperature 98.8 F 97.6 F Pulse Rate 80 88 65 Respiratory Rate 20 16 16 Blood Pressure 137/66 125/64 110/56 L Pulse Oximetry 96 97 97 04/12/18 00:00 04/12/18 04:00 Temperature 97.7 F 98 F Pulse Rate 75 70 Respiratory Rate 15 16 Blood Pressure 118/57 L 123/60 Pulse Oximetry 96 95 Intake & Output 04/11/18 04/12/18 04/12/18 18:59 06:59 18:59 Intake Total 229 / 229 1080 / 1080 Balance 229 / 229 1080 / 1080 Weight 77.2 kg Intake: Oral 1080 / 1080 Intake (Blood Product) Amt 229 / 229 Pre-Pooled Cryo Thawed 10units 229 / 229 Unit [id number] Other: # Voids 5 9 Date of Last Bowel Movement 04/10/18 Result Diagrams: 04/12/18 06:58 04/12/18 06:58 Laboratory Results: Laboratory Results - last 24 hr 04/11/18 04/11/18 04/11/18 08:45 10:33 11:42 WBC 23.5 H RBC 2.72 L Hgb 9.6 L Hct 28.1 L MCV 103.2 H MCH 35.2 H MCHC 34.1 RDW 18.8 H Plt Count 203 MPV 11.3 H Prelim Diff (Auto) Slide review pending Neut % (Auto) 77.6 H Lymph % (Auto) 13.2 [place] % (Auto) 9.1 H Eos % (Auto) 0.0 Baso % (Auto) 0.1 Neut # (Auto) 18.2 H Lymph # (Auto) 3.1 [place] # (Auto) 2.1 H Eos # (Auto) 0.0 Baso # (Auto) 0.0 WBC Differential Manual diff final Seg Neuts % (Manual) 80 H Lymphocytes % (Manual) 12 Monocytes % (Manual) 7 Myelocytes % (Man) 1 H Abs Neuts (Manual) 19.0 H Nucleated RBCs/100 WBC 5 H Differential Comment . Platelet Estimate Normal Platelet Morphology Enlarged H Pappenheimer Bodies Present H Merlos-[place] Bodies Present H Keratocytes 2+ H Fibrinogen 80 L* Blood Bank Comment Medications: Active Medications Generic Name Dose Route Start Last Admin Trade Name Freq PRN Reason Stop Dose Admin Acetaminophen 650 mg 04/04/18 21:18 04/11/18 04:56 Tylenol PO 650 mg Q4H PRN Administration Temp > 100.4 Ascorbic Acid 500 mg 04/05/18 09:00 04/11/18 20:48 Vitamin C PO 500 mg BID JACKI Administration Calcium/Vitamin D 2 tab 04/05/18 09:00 04/11/18 09:12 [place] With D 250/125 Mg PO 2 tab DAILY JACKI Administration Famotidine 20 mg 04/05/18 09:00 04/11/18 20:48 Pepcid PO 20 mg BID JACKI Administration Folic Acid 1 mg 04/05/18 09:00 04/11/18 20:48 Folic Acid PO 1 mg BID JACKI Administration Cefazolin Sodium/Dextrose 2 gm in 50 mls @ 100 mls/hr 04/09/18 16:00 14:21 Ancef 2 Gm Premix Inj IV.SIG 04/13/18 15:59 Infused [employer]ICE JACKI Infusion Vancomycin HCl 1,000 mg/ 250 mls @ 250 mls/hr 04/09/18 16:00 04/10/18 14:21 Sodium Chloride IV.SIG 04/13/18 15:59 Infused [employer]ENTICE JACKI Infusion Levothyroxine Sodium 75 mcg 04/05/18 06:00 04/12/18 05:08 Synthroid PO 75 mcg DAILY@0600 JACKI Administration Methylprednisolone Sodium Succinate 60 mg 04/06/18 21:00 04/11/18 20:48 Solumedrol Inj IV.PUSH 60 mg Q12HR JACKI Administration Pyridoxine HCl 25 mg 04/05/18 09:00 04/11/18 19:31 Vitamin B-6 PO Not Given TID JACKI Senna/Docusate Sodium 1 tab 04/05/18 09:00 04/11/18 20:49 Lorri-Colace PO Not Given BID [facility] Sodium Chloride 2 ml 04/05/18 09:00 04/11/18 20:49 Ns Flush IV.FLUSH 2 ml BID JACKI Administration Objective Remarks: GENERAL: Well-nourished, well-developed female patient, no acute distress. SKIN: Warm and dry. HEAD: Normocephalic. EYES: No scleral icterus. No injection or drainage. NECK: Supple, trachea midline. No JVD or lymphadenopathy. Tunneled Vas-Cath to right subclavian, drsg dry/intact, no bleeding. CARDIOVASCULAR: Regular rate and rhythm without murmurs. RESPIRATORY: Posterior breath sounds clear, equal bilaterally. No accessory muscle use. GASTROINTESTINAL: Abdomen soft, non-tender, nondistended. EXTREMITIES: No cyanosis, or edema. MUSCULOSKELETAL: Adequate muscle tone. NEUROLOGICAL: No obvious focal deficit. Awake, alert, and oriented x3. PSYCHIATRIC: Appropriate mood and affect; insight and judgment normal. 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 Her primary care physician ordered CBC with results coming back with very low platelets. She was directed to the emergency room. Hematology was consulted for plasmapheresis arrangement for TTP. Patient was started on Solu-Medrol IV every 8 hours in the emergency room. Recommendations: 1. Recurrent thrombotic thrombocytopenic purpura: She has received 5 plasma exchange treatments. On corticosteroids. Platelet count improving, 243K today LDH normalized. 2. Status post tunneled Vas-Cath, patient had bleeding yesterday and her discharge was held. Bleeding has stopped, her hemoglobin is stable at 9.8. 3. Outpatient plasma exchange treatments have been organized, Plasma exchange treatments will be performed on 04/16 and 04/18 next week. Followed by 04/21/2018, 04/23/18 and 04/25/18 the week following. Plan for rituximab infusion after plasma exchange treatments are complete. 4. Low fibrinogen: Likely related to plasma exchange. Status post cryoprecipitate infusion daily 04/06-04/09, and again yesterday. Fibrinogen level pending today. 5. Continue corticosteroids, plan for prednisone to 60 mg once daily at time of discharge. Will await fibrinogen level today, if greater than 100 she will be cleared for discharge from an oncology standpoint. Again, she has follow-up appointments already scheduled.
[2018-04-12] MEDS: Senna/Docusate Sodium 8.6/50 MG Tablet PO SCH (09:29)
[2018-04-12 09:59] LABS: Albumin 4.4 g/dL (3.4-5.0); Calcium 8.8 mg/dL (8.5-10.1); Carbon Dioxide 27.1 meq/L (21.0-32.0); Magnesium 2.3 mg/dL (1.5-2.5); Potassium 3.6 meq/L (3.5-5.1)
[2018-04-12 10:03] LABS: Phosphorus 3.5 mg/dL (2.5-4.9); Total Protein 5.9 g/dL (6.4-8.2)
--- NOTE | 2018-04-12 11:17 | P.PN ---
Subjective Interval history: Follow-up acute TTP April 12, 2018-patient seen and examined, no acute event overnight. Platelets up to 203 pending fibrinogen level. Daughter by the bedside Physical Exam Vital signs: Vital Signs 04/11/18 12:00 04/11/18 13:45 04/11/18 20:00 Temperature 98.8 F 97.6 F Pulse Rate 80 88 65 Respiratory Rate 20 16 16 Blood Pressure 137/66 125/64 110/56 L Pulse Oximetry 96 97 97 04/12/18 00:00 04/12/18 04:00 Temperature 97.7 F 98 F Pulse Rate 75 70 Respiratory Rate 15 16 Blood Pressure 118/57 L 123/60 Pulse Oximetry 96 95 Intake & Output 04/11/18 04/12/18 04/12/18 18:59 06:59 18:59 Intake Total 229 / 229 1080 / 1080 Balance 229 / 229 1080 / 1080 Weight 77.2 kg Intake: Oral 1080 / 1080 Intake (Blood Product) Amt 229 / 229 Pre-Pooled Cryo Thawed 10units 229 / 229 Unit [id number] Other: # Voids 5 9 Date of Last Bowel Movement 04/10/18 Narrative: GENERAL: NAD SKIN: Warm and dry. HEAD: Atraumatic. Normocephalic. EYES: Pupils equal and round. No scleral icterus. No injection or drainage. ENT: No nasal bleeding or discharge. Mucous membranes pink and moist. NECK: Trachea midline. No JVD. CARDIOVASCULAR: Regular rate and rhythm. RESPIRATORY: No accessory muscle use. Clear to auscultation. Breath sounds equal bilaterally. GASTROINTESTINAL: Abdomen soft, non-tender, nondistended. Hepatic and splenic margins not palpable. MUSCULOSKELETAL: Extremities without clubbing, cyanosis, or edema. No obvious deformities. NEUROLOGICAL: Awake and alert. No obvious cranial nerve deficits. Motor grossly within normal limits. Five out of 5 muscle strength in the arms and legs. Normal speech. PSYCHIATRIC: Appropriate mood and affect; insight and judgment normal. - Urinary Catheter Management Female External Cath placed during this visit: no Results - Labs CBC & Chem 7: 04/12/18 06:58 04/12/18 06:58 Laboratory Results - last 24 hr 04/11/18 04/11/18 04/12/18 10:33 11:42 06:58 WBC 20.6 H RBC 2.74 L Hgb 9.8 L Hct 28.2 L MCV 103.1 H MCH 35.8 H MCHC 34.7 RDW 18.5 H Plt Count 243 MPV 11.1 H Neut % (Auto) 80.9 H Lymph % (Auto) 10.0 [place] % (Auto) 9.0 H Eos % (Auto) 0.0 Baso % (Auto) 0.1 Neut # (Auto) 16.7 H Lymph # (Auto) 2.1 [place] # (Auto) 1.9 H Eos # (Auto) 0.0 Baso # (Auto) 0.0 WBC Differential . Differential Comment Auto diff final Fibrinogen 80 L* Sodium Potassium Chloride Carbon Dioxide Anion Gap BUN Creatinine Estimated GFR Random Glucose Calcium Phosphorus Magnesium Total Bilirubin Direct Bilirubin Indirect Bilirubin AST ALT Alkaline Phosphatase Total Protein Albumin Blood Bank Comment 04/12/18 06:58 WBC RBC Hgb Hct MCV MCH MCHC RDW Plt Count MPV Neut % (Auto) Lymph % (Auto) [place] % (Auto) Eos % (Auto) Baso % (Auto) Neut # (Auto) Lymph # (Auto) [place] # (Auto) Eos # (Auto) Baso # (Auto) WBC Differential Differential Comment Fibrinogen Sodium 142 Potassium 3.6 Chloride 104 Carbon Dioxide 27.1 Anion Gap 11 BUN 22 H Creatinine 0.68 Estimated GFR 86 L Random Glucose 147 H Calcium 8.8 Phosphorus 3.5 Magnesium 2.3 Total Bilirubin 0.5 Direct Bilirubin 0.1 Indirect Bilirubin 0.4 AST 24 ALT 53 Alkaline Phosphatase 25 L Total Protein 5.9 L Albumin 4.4 Blood Bank Comment Assessment and Plan - Plan 67-year-old female with Acute thrombocytopenia due to TTP Status post plasma exchange per hematology Currently on Solu-Medrol, will discharge home on prednisone 60 mg daily Fibrinogen level pending today Acute bleeding from right neck Vas-Cath site Stable Fibrinogen level pending Hypothyroidism Continue with Synthroid Normochromic normocytic anemia Chronic Methylmalonic acid pending Leukocytosis Secondary to Solu-Medrol
--- NOTE | 2018-04-12 11:19 | P.DS ---
Date of admission: 04/05/18 08:11 Primary care physician: UNKNOWN Brief History from admission: 67-year-old female with a history of TTP who presents with a 3-week history of progressively worsening generalized. Patient was found to have low platelets in the 40s 1 week ago and was started on prednisone 40 mg daily, however on outpatient labs 04/04, she is noted to have hemoglobin of 8. Patient reports some small areas of ecchymosis on her hands, as well as some petechia on her legs which has been there for several days. She denies any acute bleeding, denies any gum bleeding. Otherwise says she is feeling all right. No chest pain, shortness of breath, nausea, vomiting, Lantus, dizziness, fevers, chills. DS: Medications - Discharge Medications Prescriptions: prednisone 60 mg PO DAILY 7 Days #8.4 tab DS: Summary Hospital Course: Patient admitted secondary to acute thrombocytopenia secondary to TTP for which hematology was consulted and she underwent multiple plasmapheresis exchange along with platelet transfusion with monitoring of platelet level. Patient also received fibrinogen infusions with monitoring of levels. She had exchange of Vas-Cath secondary to bleeding. She was continued on treatment for other chronic medical conditions. She will be discharged home on prednisone 60 mg daily. - Time Spent with Patient Total time spent providing and/or coordinating discharge services: Less than 30 minutes - Quality: VTE Deep Vein Thrombosis/Pulmonary Embolism Present on Admission: No Exam Vital signs: Vital Signs 04/11/18 12:00 04/11/18 13:45 04/11/18 20:00 Temperature 98.8 F 97.6 F Pulse Rate 80 88 65 Respiratory Rate 20 16 16 Blood Pressure 137/66 125/64 110/56 L Pulse Oximetry 96 97 97 04/12/18 00:00 04/12/18 04:00 Temperature 97.7 F 98 F Pulse Rate 75 70 Respiratory Rate 15 16 Blood Pressure 118/57 L 123/60 Pulse Oximetry 96 95 Intake & Output 04/11/18 04/12/18 04/12/18 18:59 06:59 18:59 Intake Total 229 / 229 1080 / 1080 Balance 229 / 229 1080 / 1080 Weight 77.2 kg Intake: Oral 1080 / 1080 Intake (Blood Product) Amt 229 / 229 Pre-Pooled Cryo Thawed 10units 229 / 229 Unit [id number] Other: # Voids 5 9 Date of Last Bowel Movement 04/10/18 Narrative: GENERAL: NAD SKIN: Warm and dry. HEAD: Atraumatic. Normocephalic. EYES: Pupils equal and round. No scleral icterus. No injection or drainage. ENT: No nasal bleeding or discharge. Mucous membranes pink and moist. NECK: Trachea midline. No JVD. CARDIOVASCULAR: Regular rate and rhythm. RESPIRATORY: No accessory muscle use. Clear to auscultation. Breath sounds equal bilaterally. GASTROINTESTINAL: Abdomen soft, non-tender, nondistended. Hepatic and splenic margins not palpable. MUSCULOSKELETAL: Extremities without clubbing, cyanosis, or edema. No obvious deformities. NEUROLOGICAL: Awake and alert. No obvious cranial nerve deficits. Motor grossly within normal limits. Five out of 5 muscle strength in the arms and legs. Normal speech. PSYCHIATRIC: Appropriate mood and affect; insight and judgment normal. Results Procedures completed during hospitalization: None Labs on day of discharge: Labs from last 24 hours 04/12/18 04/12/18 04/12/18 10:18 06:58 06:58 WBC 20.6 H RBC 2.74 L Hgb 9.8 L Hct 28.2 L MCV 103.1 H MCH 35.8 H MCHC 34.7 RDW 18.5 H Plt Count 243 MPV 11.1 H Neut % (Auto) 80.9 H Lymph % (Auto) 10.0 [place] % (Auto) 9.0 H Eos % (Auto) 0.0 Baso % (Auto) 0.1 Neut # (Auto) 16.7 H Lymph # (Auto) 2.1 [place] # (Auto) 1.9 H Eos # (Auto) 0.0 Baso # (Auto) 0.0 WBC Differential . Differential Comment Auto diff final Fibrinogen Pending Sodium 142 Potassium 3.6 Chloride 104 Carbon Dioxide 27.1 Anion Gap 11 BUN 22 H Creatinine 0.68 Estimated GFR 86 L Random Glucose 147 H Calcium 8.8 Phosphorus 3.5 Magnesium 2.3 Total Bilirubin 0.5 Direct Bilirubin 0.1 Indirect Bilirubin 0.4 AST 24 ALT 53 Alkaline Phosphatase 25 L Total Protein 5.9 L Albumin 4.4 Blood Bank Comment 04/11/18 04/11/18 11:42 10:33 WBC RBC Hgb Hct MCV MCH MCHC RDW Plt Count MPV Neut % (Auto) Lymph % (Auto) [place] % (Auto) Eos % (Auto) Baso % (Auto) Neut # (Auto) Lymph # (Auto) [place] # (Auto) Eos # (Auto) Baso # (Auto) WBC Differential Differential Comment Fibrinogen 80 L* Sodium Potassium Chloride Carbon Dioxide Anion Gap BUN Creatinine Estimated GFR Random Glucose Calcium Phosphorus Magnesium Total Bilirubin Direct Bilirubin Indirect Bilirubin AST ALT Alkaline Phosphatase Total Protein Albumin Blood Bank Comment - Impressions ITS Impressions Chest X-Ray 04/04/18 19:29 CONCLUSION: 1. No acute cardiopulmonary disease. Catheter Placement 04/05/18 00:00 CONCLUSION: 1. Uncomplicated line placement as above. Central Venous Line 04/10/18 00:00 CONCLUSION: 1. Uncomplicated PermaCath placement as above. Discharge Plan - Discharge Disposition Patient Disposition: Discharge Home - Discharge Condition Condition: Good - Discharge Order Discharge Orders: Discharge Order (Routine); Ordered 04/12/18 Ordered By: Zaki Qureshi - Physicians Team Primary Care Provider: UNKNOWN, Attending Provider: Zaki Qureshi Other Providers: [employer] ; Puja Poon MD ; Nancy Conklin MD ; Cali Salazar MD
== END 2018-04-12 12:35 | disposition home or self-care (01) ==
LOC: NEDA 19:12 → NEPC 19:12 → NEDA 22:39 → NEPFCDU 22:41 → HIMC 04-05 08:45 → HCIN 04-07 19:13 → HCIS 04-11 12:45 → HCIN 04-11 13:27
PROVIDERS: ADMIT Hospitalist; ATTEND Hospitalist